=== PATIENT | male | born 1970 | race Caucasian/White ===

== ENCOUNTER 2017-10-24 02:46 | Observation (INO) | payer SELFPAY ==
[2017-10-24] MEDS ORDERED: MORPHINE SULFATE 10 MG/ML INJ IV ONE (02:54)
[2017-10-24] MEDS ORDERED: ONDANSETRON HCL INJ/PF 4 MG/2 ML SDV IV ONE (02:54)
[2017-10-24] MEDS ORDERED: NORMAL SALINE 1000 ML 1,000 ML IV ONE (02:54)
--- NOTE | 2017-10-24 02:57 | ER Document Report ---
ED GI/ - General Stated Complaint: ABDOMINAL PAIN Time Seen by Provider: 10/24/17 02:50 Notes: Patient is a 47-year-old male that comes emergency department for chief complaint of upper abdominal pain and nausea, symptoms started about 3 hours prior to arrival, he states the pain is sharp, does not radiate to his back, he states that he started to break out into a sweat because of the pain. He denies chest pain, shortness of breath, fever. He comes by EMS. He has not vomited. He has had an appendectomy, orthopedic surgeries, denies any medications or medical history otherwise. Past Medical History - General Information source: Patient - Social History Smoking Status: Never Smoker Frequency of alcohol use: None Drug Abuse: None Lives with: Alone Family History: Reviewed & Not Pertinent - Medical History Medical History: Negative Past Surgical History: Reports: Hx Appendectomy, Hx Orthopedic Surgery - Immunizations Hx Diphtheria, Pertussis, Tetanus Vaccination: Yes Review of Systems - Review of Systems Constitutional: No symptoms reported EENT: No symptoms reported Cardiovascular: No symptoms reported Respiratory: No symptoms reported Gastrointestinal: See HPI Genitourinary: No symptoms reported Male Genitourinary: No symptoms reported Musculoskeletal: No symptoms reported Skin: No symptoms reported Hematologic/Lymphatic: No symptoms reported Neurological/Psychological: No symptoms reported Physical Exam - Vital signs Vitals: Temp Pulse Resp BP Pulse Ox 99.2 F 60 20 131/85 H 98 10/24/17 02:55 10/24/17 02:55 10/24/17 02:55 10/24/17 02:55 10/24/17 02:55 - Notes Notes: GENERAL: Alert, interacts well. Appears to be in pain, sitting up on the bed, holding his abdomen HEAD: Normocephalic, atraumatic. EYES: Pupils equal, round, and reactive to light. Extraocular movements intact. ENT: Oral mucosa moist, tongue midline. [Nares patent, no nasal septal hematoma , TM's intact.] NECK: Full range of motion. Supple. Trachea midline. LUNGS: Clear to auscultation bilaterally, no wheezes, rales, or rhonchi. No respiratory distress. HEART: Regular rate and rhythm. No murmur ABDOMEN: Tender in the epigastric area and very tender in the right upper quadrant with positive Juarez sign. Lower abdomen is benign and nontender. There appears to be a soft nontender umbilical hernia which is easily reduced. Remaining abdomen unremarkable. No distention. EXTREMITIES: Moves all 4 extremities spontaneously. No edema, normal radial and dorsalis pedis pulses bilaterally. No cyanosis. BACK: no cervical, thoracic, lumbar midline tenderness. No saddle anesthesia, normal distal neurovascular exam. NEUROLOGICAL: Alert and oriented x3. Normal speech. [cranial nerves II through XII grossly intact]. SKIN: Warm, dry, normal turgor. No rashes or lesions noted. Course - Re-evaluation Re-evalutation: Patient in obvious pain on my evaluation, holding his upper abdomen, positive Juarez's sign, after examination patient promptly vomited. No CVA tenderness, lower abdomen is benign. Patient vomited several more times. Patient more comfortable after medication although still not completely comfortable. CBC shows mild leukocytosis with no shift. Chemistry unremarkable including lipase. Ultrasound showing cholelithiasis with positive sonographic Juarez sign, no pericholecystic fluid, no wall thickening, no ductal dilatation. On reevaluation patient is still very uncomfortable. Remedicated. Will discuss with surgery, discussed this with patient, he is in full agreement with potential surgery for this. 10/24/17 06:04 Spoke with surgeon, Dr. Adler, he will come and evaluate the patient. 10/24/17 06:29 Dr. Adler evaluated the patient, patient will have surgery this morning, request patient remained in the OR at this time for approximately 2 hours pending going to the OR for the procedure. - Vital Signs Vital signs: Temp Pulse Resp BP Pulse Ox 99.2 F 60 20 131/85 H 98 10/24/17 02:55 10/24/17 02:55 10/24/17 02:55 10/24/17 02:55 10/24/17 02:55 - Laboratory Result Diagrams: 10/24/17 03:05 10/24/17 03:05 Laboratory results interpreted by me: 10/24/17 10/24/17 03:05 03:05 WBC 12.1 H Sodium 147.9 H Glucose 137 H Discharge - Discharge Clinical Impression: Right upper quadrant pain Cholelithiasis Qualifiers: Cholelithiasis location: gallbladder Cholecystitis presence: without cholecystitis Biliary obstruction: without biliary obstruction Qualified Code(s) : K80.20 - Calculus of gallbladder without cholecystitis without obstruction Vomiting Qualifiers: Vomiting type: unspecified Vomiting Intractability: non-intractable Nausea presence: with nausea Qualified Code(s): R11.2 - Nausea with vomiting, unspecified Condition: Stable Disposition: ADMITTED OBSERVATION Admitting Provider: Surgicalist Unit Admitted: OR
[2017-10-24] MEDS ORDERED: KETOROLAC TROMETHAMINE INJ/PF 30 MG/1 ML SDV IV ONE (03:16)
[2017-10-24 03:29] LABS: ABSOLUTE BASOPHILS # (AUTO) 0.1 10^3/uL (0.0-0.2); ABSOLUTE EOSINOPHILS # (AUTO) 0.4 10^3/uL (0.0-0.6); ABSOLUTE LYMPHOCYTES (AUTO) 2.9 10^3/uL (0.5-4.7); ABSOLUTE MONOCYTES (AUTO) 1.1 10^3/uL (0.1-1.4); ABSOLUTE NEUT (AUTO) 7.7 10^3/uL (1.7-8.2); BASOPHILS % (AUTO) 0.6 % (0-2); HEMATOCRIT 44.6 % (37.9-51.0); HEMOGLOBIN 14.8 g/dL (13.5-17.0); LYMPHOCYTES % (AUTO) 23.9 % (13-45); MEAN CORPUSCULAR HEMOGLOBIN 29.7 pg (27.0-33.4); MEAN CORPUSCULAR HGB CONC 33.3 g/dL (32.0-36.0); MEAN CORPUSCULAR VOLUME 89 fl (80-97); MONOCYTES % (AUTO) 9.1 % (3-13); PLATELET COUNT 341 10^3/uL (150-450); RED CELL DISTRIBUTION WIDTH 12.8 % (11.5-14.0); SEGMENTED NEUTROPHILS % (AUTO) 63.4 % (42-78); TOTAL CELLS COUNTED % (AUTO) 100 %; WHITE BLOOD COUNT 12.1 10^3/uL (4.0-10.5)
[2017-10-24 03:40] LABS: ALANINE AMINOTRANSFERASE 32 U/L (21-72); ALBUMIN 4.5 g/dL (3.5-5.0); ALKALINE PHOSPHATASE 58 U/L (38-126); ANION GAP 16 (5-19); ASPARTATE AMINO TRANSFERASE 23 U/L (17-59); BILIRUBIN,DIRECT 0.2 mg/dL (0.0-0.4); BILIRUBIN,TOTAL 0.4 mg/dL (0.2-1.3); BLOOD UREA NITROGEN 18 mg/dL (7-20); CALCIUM 9.6 mg/dL (8.4-10.2); CARBON DIOXIDE 25 mmol/L (22-30); CHLORIDE 107 mmol/L (98-107); GLUCOSE 137 mg/dL (75-110); LIPASE 122.1 U/L (23-300); POTASSIUM 3.9 mmol/L (3.6-5.0); SODIUM 147.9 mmol/L (137-145); TOTAL PROTEIN 7.7 g/dL (6.3-8.2)
--- NOTE | 2017-10-24 04:43 | RADIOLOGY REPORT (SQ) ---
EXAM DESCRIPTION: US ABDOMEN LIMITED COMPLETED DATE/TME: 10/24/2017 02:54 CLINICAL HISTORY: RUQ and epigastric pain, vomiting COMPARISON: None. TECHNIQUE: Real-time sonographic images of the right upper abdomen were obtained using a curved multihertz transducer. FINDINGS: Pancreas: The visualized portions of the pancreas are unremarkable. Vascular: The visualized portions of the aorta and IVC are unremarkable. Liver: The liver has normal contour and echogenicity. Hepatopedal flow in the portal vein. Findings confirmed with color and spectral Doppler imaging. The common bile duct measures 0.3 cm. Gallbladder: Echogenic structures with posterior shadowing identified. Normal gallbladder wall thickness. Positive reported sonographic Juarez sign. No pericholecystic fluid identified. Right Kidney: The right kidney measures 12.1 cm in length. No hydronephrosis, solid renal mass, or shadowing calculi. IMPRESSION: 1. Cholelithiasis with reported positive sonographic Juarez sign. These findings could be seen with acute cholecystitis.
[2017-10-24] MEDS ORDERED: HYDROMORPHONE HCL INJ/PF 2 MG/ML AMPULE IV ONE ×2 (04:50→07:53)
[2017-10-24] MEDS ORDERED: AMPICILLIN SOD/SULBACTAM 3 GM VIAL IV ONE (04:51)
[2017-10-24 05:58] LABS: APPEARANCE,URINE CLEAR; BILIRUBIN,URINE NEGATIVE (NEGATIVE); COLOR,URINE YELLOW; GLUCOSE, URINE NEGATIVE (NEGATIVE); KETONES,URINE NEGATIVE (NEGATIVE); LEUKOCYTE ESTERASE,URINE NEGATIVE (NEGATIVE); NITRITE,URINE NEGATIVE (NEGATIVE); PROTEIN,URINE NEGATIVE (NEGATIVE); URINE SPECIFIC GRAVITY 1.019; UROBILINOGEN,URINE NEGATIVE mg/dL (<2.0)
--- NOTE | 2017-10-24 06:43 | PDOC H&P ---
History of Present Illness Admission Date/PCP: 10/24/2017 Patient complains of: Abdominal pains History of Present Illness: ALLAN KILPATRICK is a 47 year old male who woke up at 11 pm last night with upper abdominal pains associated with nausea. He had greasy chicken wings at 7: 30 pm. He went to ED were an ultrasound of gallbladder showed gallstones with positive Juarez's sign. Past Surgical History Past Surgical History: Reports: Appendectomy, Orthopedic Surgery Social History Lives with: Alone Smoking Status: Never Smoker Family History Family History: Reviewed & Not Pertinent Parental Family History Reviewed: Yes Children Family History Reviewed: No Sibling(s) Family History Reviewed.: No Review of Systems Constitutional: PRESENT: other - no fever/chills Eyes: PRESENT: other - no visual/hearing changes Cardiovascular: PRESENT: other - no chest pains/cough Gastrointestinal: PRESENT: abdominal pain, nausea Genitourinary: PRESENT: other - no dysuria Hematologic/Lymphatic: PRESENT: other - no easy bruising Physical Exam Vital Signs: Temp Pulse Resp BP Pulse Ox 99.2 F 60 20 131/85 H 98 10/24/17 02:55 10/24/17 02:55 10/24/17 02:55 10/24/17 02:55 10/24/17 02:55 Intake & Output 10/22/17 10/23/17 10/24/17 06:59 06:59 06:59 Intake Total 1000 Balance 1000 General appearance: PRESENT: mild distress Head exam: PRESENT: atraumatic Eye exam: PRESENT: conjunctiva pink Mouth exam: PRESENT: moist Neck exam: PRESENT: full ROM Respiratory exam: PRESENT: clear to auscultation eliu Cardiovascular exam: PRESENT: RRR Pulses: PRESENT: normal radial pulses Vascular exam: PRESENT: normal capillary refill GI/Abdominal exam: PRESENT: Juarez's sign, soft Rectal exam: PRESENT: deferred Extremities exam: PRESENT: full ROM Musculoskeletal exam: PRESENT: ambulatory Neurological exam: PRESENT: alert, oriented to person, oriented to place, oriented to time, oriented to situation Psychiatric exam: PRESENT: appropriate affect Skin exam: PRESENT: normal color, warm Results Laboratory Results: 10/24/17 03:05 10/24/17 03:05 10/24/17 10/24/17 10/24/17 03:05 03:05 04:50 WBC 12.1 H RBC 5.00 Hgb 14.8 Hct 44.6 MCV 89 MCH 29.7 MCHC 33.3 RDW 12.8 Plt Count 341 Seg Neutrophils % 63.4 Lymphocytes % 23.9 Monocytes % 9.1 Eosinophils % 3.0 Basophils % 0.6 Absolute Neutrophils 7.7 Absolute Lymphocytes 2.9 Absolute Monocytes 1.1 Absolute Eosinophils 0.4 Absolute Basophils 0.1 Sodium 147.9 H Potassium 3.9 Chloride 107 Carbon Dioxide 25 Anion Gap 16 BUN 18 Creatinine 1.02 Est GFR ( Amer) > 60 Est GFR (Non-Af Amer) > 60 Glucose 137 H Calcium 9.6 Total Bilirubin 0.4 AST 23 ALT 32 Alkaline Phosphatase 58 Total Protein 7.7 Albumin 4.5 Lipase 122.1 Urine Color YELLOW Urine Appearance CLEAR Urine pH 6.0 Ur Specific [place] 1.019 Urine Protein NEGATIVE Urine Glucose (UA) NEGATIVE Urine Ketones NEGATIVE Urine Blood NEGATIVE Urine Nitrite NEGATIVE Ur Leukocyte Esterase NEGATIVE Urine WBC (Auto) 1 Urine RBC (Auto) 2 Impressions: Abdomen Ultrasound 10/24/17 02:54 IMPRESSION: 1. Cholelithiasis with reported positive sonographic Juarez sign. These findings could be seen with acute cholecystitis. Assessment & Plan - Diagnosis (1) Acute cholecystitis Is this a current diagnosis for this admission?: Yes (2) Cholelithiasis Qualifiers: Cholelithiasis location: gallbladder Cholecystitis presence: with cholecystitis Biliary obstruction: without biliary obstruction Qualified Code(s): K80.20 - Calculus of gallbladder without cholecystitis without obstruction Is this a current diagnosis for this admission?: Yes - Time Time Spent: 30 to 50 Minutes - Inpatient Certification Medical Necessity: Need For IV Fluids, Need for Pain Control, Need for IV Antibiotics, Need for Surgery - Plan Summary Plan Summary: NPO IV antibiotics For Lap Ana
[2017-10-24] MEDS: NORMAL SALINE 1000 ML 1,000 ML IV PRN ×2 (07:52→16:10)
[2017-10-24] MEDS ORDERED: FENTANYL CITRATE INJ/PF 250 MCG/5 ML AMPULE ONE (10:30)
[2017-10-24] MEDS ORDERED: MIDAZOLAM 2 MG/2 ML INJ ONE (10:30)
[2017-10-24] MEDS ORDERED: ACETAMINOPHEN 1,000 MG/100 ML RTUPB IV ONE (10:31)
[2017-10-24] MEDS ORDERED: PROPOFOL INJ 200 MG/20 ML VIAL IV ONE (10:31)
[2017-10-24] MEDS: BUPIVACAINE HCL 0.25 % INJ/PF (2.5 MG/1 ML) 30 ML VIAL ONE ×2 (11:56→12:18)
[2017-10-24] MEDS ORDERED: DIPHENHYDRAMINE HCL 50 MG/ML VIAL IV PRN (12:24)
[2017-10-24] MEDS ORDERED: FENTANYL CITRATE INJ/PF 100 MCG/2 ML AMPUL IV PRN ×3 (12:24)
[2017-10-24] MEDS ORDERED: PROMETHAZINE HCL INJ 25 MG/1 ML VIAL IV PRN ×2 (12:24)
[2017-10-24] MEDS ORDERED: MORPHINE SULFATE 10 MG/ML INJ IV PRN (12:24)
[2017-10-24] MEDS ORDERED: MEPERIDINE HCL/PF INJ 25 MG/1 ML DISP.SYRIN IV PRN (12:24)
[2017-10-24] MEDS ORDERED: ONDANSETRON HCL INJ/PF 4 MG/2 ML SDV IV PRN (13:21)
--- NOTE | 2017-10-24 13:21 | Operative Report ---
Operative Report DATE OF SURGERY: 10/24/17 PREOPERATIVE DIAGNOSIS: Acute cholecystitis with cholelithiasis POSTOPERATIVE DIAGNOSIS: Same OPERATION: Laparoscopic cholecystectomy SURGEON: BRODY ISAACS ANESTHESIA: GA TISSUE REMOVED OR ALTERED: 1 gallbladder with contents COMPLICATIONS: None ESTIMATED BLOOD LOSS: Scant INTRAOPERATIVE FINDINGS: See below PROCEDURE: After obtaining informed consent, the patient was taken to the operating room. General Anesthesia was induced; the arms were extended, and the abdomen was exposed, and prepped and draped in a sterile fashion. Instrumentation was set up for laparoscopic cholecystectomy. Surgical plan and surgical timeout were conducted. A vertical incision was made above the umbilicus, and a verres needle was inserted uneventfully into the peritoneal cavity. Pneumoperitoneum was established. The verres needle was removed and a 5 mm trocar was inserted and a 5 mm flexible laparoscope was inserted. Visualization of the peritoneal cavity confirmed safe uneventful entry. Under direct visualization 3 additional 5 mm ports were established, one in the subxiphoid position and second in the subcostal position. Visualization of the hepatobiliary anatomy revealed no anatomic variations. Of note there was marked edema of the gallbladder consistent with acute cholecystitis. A grasper was placed on the fundus of the gallbladder and the gallbladder is elevated over the right surface of the liver ; a second grasper was used to grasp the infundibulum of the gallbladder. The neck of the gallbladder and junction with the cystic duct was dissected out. The neck of the gallbladder was very patulous and the taper to the cystic duct very gradual. The Cystic artery was in its usual location medial and cephalad to the cystic duct. The cystic artery was surrounded with a right angle clamp, clipped twice proximally and divided with laparoscopic scissors. Because of the marked edema I elected to take the gallbladder down from the fundus and this was performed with a cautery dissection until the point where the gallbladder was suspended exclusively by the cystic duct. Multiple photos were taken. Again this was a large cystic duct. I put a 0 Endoloop around the gallbladder side of the cystic duct then opened the cystic duct transversely and then opened the duct medially in a T like fashion. A significant amount of sludge and small stones were evacuated from the cystic duct stump. We irrigated massaged and we irrigated the area. Unfortunately I never got back bile. The patient's preoperative liver function studies were within normal limits, and the common bile duct was felt to be of normal caliber. Therefore we did not pursue any further intervention such as intraoperative cholangiography. The cystic duct was then divided completely, gallbladder was brought to the patient to the supraumbilical port site incision We returned the peritoneal cavity removed some of the small previously released stones from the cystic duct, then secured the cystic duct stump with a 3-0 PDS Endoloop suture. Concluding photos were taken. The specimen was examined, then passed off to pathology for permanent analysis. We returned to the peritoneal cavity check for bleeding, and evidence of bile leak, and there was none. We Confirmed satisfactory placement of clips on cystic duct and cystic artery were secured . At this point we felt the operation was complete. The subcutaneous tissue was then anesthetized with quarter percent Marcaine Sponge and needle counts are correct. All ports removed under direct visualization pneumoperitoneum evacuated, and 5 mm port wounds closed with 0 Vicryl at the supraumbilical position, 3-0 Vicryl suture, benzoin and Steri-Strips. The patient was extubated, and taken to the recovery room in stable condition.
[2017-10-24] MEDS ORDERED: FENTANYL CITRATE INJ/PF 100 MCG/2 ML AMPUL ONE (13:55)
[2017-10-24] MEDS: OXYCODONE-ACETAMINOPHEN 5-325 MG TABLET PO PRN ×2 (16:17→22:06)
[2017-10-24] MEDS: KETOROLAC TROMETHAMINE 10 MG TABLET PO PRN (17:31)
[2017-10-24] MEDS: CEFAZOLIN 1 GM/D5W RTU 1 GM/50 ML RTUPB IV SCH (17:36)
[2017-10-24] MEDS ORDERED: DEXAMETHASONE SOD PHOSPHATE INJ 4 MG/1 ML VIAL ONE (18:36)
[2017-10-24] MEDS ORDERED: ROCURONIUM BROMIDE INJ 50 MG/5 ML VIAL IV ONE (18:36)
[2017-10-24] MEDS ORDERED: ONDANSETRON HCL INJ/PF 4 MG/2 ML SDV ONE (18:36)
[2017-10-25] MEDS: CEFAZOLIN 1 GM/D5W RTU 1 GM/50 ML RTUPB IV SCH (01:51)
[2017-10-25] MEDS: KETOROLAC TROMETHAMINE 10 MG TABLET PO PRN (05:58)
[2017-10-25 10:40] VITALS: BP 132/79
--- NOTE | 2017-10-26 06:50 | DISCHARGE SUMMARY E ---
Discharge Summary NAME: ALLAN KILPATRICK : 1970 AGE: 47Y ADMITTED: 10/24/2017 DISCHARGED: 10/25/2017 FINAL DIAGNOSIS: ACUTE CALCULUS CHOLECYSTITIS. PROCEDURE DONE: Laparoscopic cholecystectomy 10/24/2017. SURGEON: Dr. Eduardo Sumner [facility]SE: This is a 47-year-old male who came in with abdominal pains for 24 hours after a fatty meal. He was noted to have stones in the gallbladder and markedly tender in the right upper quadrant. He was then taken to the OR for laparoscopic cholecystectomy for acute cholecystitis by Dr. Sumner on 10/24/2017. Postoperatively he did well and he tolerated a soft on the day of discharge. He was then discharged improved on 10/25/2017 with above final diagnosis. Patient to be followed up in the surgical clinic in 2 weeks. DICTATING PHYSICIAN: JOSE ARMANDO JOSHUA M.D. [id number] PHY#: [id number] ID: [id number] JOB#: [id number] ACCT: [id number] cc:Juanjose GARZA MD, M.D. IVAN FRIANT, PA >
== END 2017-10-25 11:30 | disposition home or self-care (01) ==
LOC: ER 02:46 → EH 06:39 → 2S 09:16
PROVIDERS: ATTEND Surgery
PROC: 0FT44ZZ Resection of Gallbladder, Percutaneous Endoscopic Approach (ICD-10-PCS; principal; 2017-10-24 11:00)
DX: K80.12 Calculus of gallbladder with acute and chronic cholecystitis without obstruction (principal); Z90.49 Acquired absence of other specified parts of digestive tract
CPT/HCPCS: 96376; 99285; 96361; 96374; 96375; 36415; 83690; 85025; 80053; 81001; 88304 ×2; 76705; 47562; G0378 ×2; J2250; J0690 ×2; J3490 ×3; J1100; J3010 ×2; J0295; J1885; J2270; J1170; J2405; J7030; J2704; J0131; 790

== ENCOUNTER 2019-01-09 22:17 | Emergency (ER) | payer SELFPAY ==
--- NOTE | 2019-01-09 22:47 | ER Document Report ---
ED Medical Screen (RME) - General Chief Complaint: Abdominal Pain Stated Complaint: ADBOMINAL PAIN Time Seen by Provider: 01/09/19 22:41 Mode of Arrival: Ambulatory Information source: Patient Notes: This 49-year-old male presents emergency department with complaints of severe epigastric right upper quad abdominal pain. Reports he had his gallbladder taken out last year. Denies fever vomiting diarrhea. Reports he is tried multiple [id number] agents without relief of symptoms. I have greeted and performed a rapid initial assessment of this patient. A comprehensive ED assessment and evaluation of the patient, analysis of test results and completion of the medical decision making process will be conducted by additional ED providers. Dictation of this chart was performed using voice recognition software; therefore, there may be some unintended grammatical errors. TRAVEL OUTSIDE OF THE [place] IN LAST 30 DAYS: No - Related Data Allergies/Adverse Reactions: No Known Allergies Allergy (Verified 10/24/17 08:07) Past Medical History Pulmonary Medical History: Reports: Hx Asthma - childhood Renal/ Medical History: Denies: Hx Peritoneal Dialysis GI Medical History: Reports: Hx Gastroesophageal Reflux Disease Past Surgical History: Reports: Hx Appendectomy, Hx Orthopedic Surgery - Immunizations Hx Diphtheria, Pertussis, Tetanus Vaccination: Yes Physical Exam - Vital signs Vitals: Temp Pulse Resp BP Pulse Ox 98.1 F 66 18 133/91 H 97 01/09/19 22:26 01/09/19 22:26 01/09/19 22:26 01/09/19 22:26 01/09/19 22:26 Course - Vital Signs Vital signs: Temp Pulse Resp BP Pulse Ox 98.1 F 66 18 133/91 H 97 01/09/19 22:26 01/09/19 22:26 01/09/19 22:26 01/09/19 22:26 01/09/19 22:26
[2019-01-09 23:11] LABS: APPEARANCE,URINE CLEAR; BILIRUBIN,URINE NEGATIVE (NEGATIVE); COLOR,URINE YELLOW; GLUCOSE, URINE NEGATIVE (NEGATIVE); KETONES,URINE NEGATIVE (NEGATIVE); LEUKOCYTE ESTERASE,URINE NEGATIVE (NEGATIVE); NITRITE,URINE NEGATIVE (NEGATIVE); PROTEIN,URINE NEGATIVE (NEGATIVE); URINE SPECIFIC GRAVITY 1.021; UROBILINOGEN,URINE NEGATIVE mg/dL (<2.0)
[2019-01-09 23:12] LABS: ABSOLUTE BASOPHILS # (AUTO) 0.1 10^3/uL (0.0-0.2); ABSOLUTE EOSINOPHILS # (AUTO) 0.5 10^3/uL (0.0-0.6); ABSOLUTE LYMPHOCYTES (AUTO) 2.7 10^3/uL (0.5-4.7); ABSOLUTE NEUT (AUTO) 5.8 10^3/uL (1.7-8.2); BASOPHILS % (AUTO) 0.8 % (0-2); EOSINOPHILS % (AUTO) 4.6 % (0-6); HEMATOCRIT 43.2 % (37.9-51.0); HEMOGLOBIN 14.9 g/dL (13.5-17.0); LYMPHOCYTES % (AUTO) 26.8 % (13-45); MEAN CORPUSCULAR HEMOGLOBIN 30.6 pg (27.0-33.4); MEAN CORPUSCULAR HGB CONC 34.5 g/dL (32.0-36.0); MEAN CORPUSCULAR VOLUME 89 fl (80-97); MONOCYTES % (AUTO) 9.7 % (3-13); PLATELET COUNT 292 10^3/uL (150-450); RED BLOOD COUNT 4.88 10^6/uL (4.35-5.55); RED CELL DISTRIBUTION WIDTH 12.9 % (11.5-14.0); SEGMENTED NEUTROPHILS % (AUTO) 58.1 % (42-78); TOTAL CELLS COUNTED % (AUTO) 100 %; WHITE BLOOD COUNT 10.1 10^3/uL (4.0-10.5)
[2019-01-09 23:28] LABS: ALBUMIN 4.3 g/dL (3.5-5.0); ALKALINE PHOSPHATASE 54 U/L (38-126); AMYLASE 72 U/L (30-110); ANION GAP 10 (5-19); ASPARTATE AMINO TRANSFERASE 22 U/L (17-59); BILIRUBIN,DIRECT 0.1 mg/dL (0.0-0.4); BILIRUBIN,TOTAL 0.5 mg/dL (0.2-1.3); BLOOD UREA NITROGEN 19 mg/dL (7-20); CALCIUM 9.3 mg/dL (8.4-10.2); CARBON DIOXIDE 25 mmol/L (22-30); CHLORIDE 108 mmol/L (98-107); GLUCOSE 93 mg/dL (75-110); POTASSIUM 4.2 mmol/L (3.6-5.0); TOTAL PROTEIN 7.4 g/dL (6.3-8.2)
[2019-01-10] MEDS ORDERED: MORPHINE SULFATE 10 MG/ML INJ IV ONE (01:45)
[2019-01-10] MEDS ORDERED: ONDANSETRON HCL INJ/PF 4 MG/2 ML SDV IV ONE (01:45)
[2019-01-10] MEDS ORDERED: NORMAL SALINE 1000 ML 1,000 ML IV ONE (01:45)
--- NOTE | 2019-01-10 01:46 | ER Document Report ---
ED GI/ - General Chief Complaint: Abdominal Pain Stated Complaint: ADBOMINAL PAIN Time Seen by Provider: 01/09/19 22:41 Mode of Arrival: Ambulatory Notes: Patient is a 49-year-old male that comes to the emergency department for chief complaint of sharp pain in his epigastric and right upper quadrant areas (he points). This started last night, started subsiding, return today, and then worsened this evening. He reports nausea but denies vomiting. He states he tried to eat but this did make symptoms worse both yesterday and today. He has had a cholecystectomy. He denies alcohol, smoking but he does admit to frequent caffeine and recent [id number] anti-inflammatories. He denies chest pain, shortness of breath, fever/chills, flank pain, lower abdominal pain. He takes medication for depression, on no other medications. TRAVEL OUTSIDE OF THE [place] IN LAST 30 DAYS: No - Related Data Allergies/Adverse Reactions: No Known Allergies Allergy (Verified 10/24/17 08:07) Past Medical History - General Information source: Patient - Social History Smoking Status: Never Smoker Frequency of alcohol use: None Drug Abuse: None Lives with: Family Family History: Reviewed & Not Pertinent Patient has suicidal ideation: No Patient has homicidal ideation: No Pulmonary Medical History: Reports: Hx Asthma - childhood Renal/ Medical History: Denies: Hx Peritoneal Dialysis GI Medical History: Reports: Hx Gastroesophageal Reflux Disease Past Surgical History: Reports: Hx Appendectomy, Hx Cholecystectomy, Hx Orthopedic Surgery - Immunizations Hx Diphtheria, Pertussis, Tetanus Vaccination: Yes Review of Systems - Review of Systems Constitutional: No symptoms reported EENT: No symptoms reported Cardiovascular: No symptoms reported Respiratory: No symptoms reported Gastrointestinal: See HPI Genitourinary: No symptoms reported Male Genitourinary: No symptoms reported Musculoskeletal: No symptoms reported Skin: No symptoms reported Hematologic/Lymphatic: No symptoms reported Neurological/Psychological: No symptoms reported Physical Exam - Vital signs Vitals: Temp Pulse Resp BP Pulse Ox 98.1 F 66 18 133/91 H 97 01/09/19 22:26 01/09/19 22:26 01/09/19 22:26 01/09/19 22:26 01/09/19 22:26 - Notes Notes: GENERAL: Alert, interacts well. No acute distress. HEAD: Normocephalic, atraumatic. EYES: Pupils equal, round, and reactive to light. Extraocular movements intact. ENT: Oral mucosa moist, tongue midline. Oropharynx unremarkable. Airway patent. Nares patent, no nasal septal hematoma, TM's intact. NECK: Full range of motion. Supple. Trachea midline. LUNGS: Clear to auscultation bilaterally, no wheezes, rales, or rhonchi. No respiratory distress. HEART: Regular rate and rhythm. No murmur ABDOMEN: There is some epigastric tenderness and very mild tenderness across the upper abdomen generally, nonspecific, no guarding. Lower abdomen is completely benign. GENITOURINARY: Deferred EXTREMITIES: Moves all 4 extremities spontaneously. No edema, normal radial and dorsalis pedis pulses bilaterally. No cyanosis. BACK: no cervical, thoracic, lumbar midline tenderness. No saddle anesthesia, normal distal neurovascular exam. Moves all extremities in full range of motion. NEUROLOGICAL: Alert and oriented x3. Normal speech. Cranial nerves II through XII grossly intact. PSYCH: Normal affect, normal mood. SKIN: Warm, dry, normal turgor. No rashes or lesions noted. Course - Re-evaluation Re-evalutation: Patient with epigastric tenderness on evaluation but no guarding. He is not in distress. His reported symptoms are very suspicious for gastritis and upper gastrointestinal inflammation. CBC, chemistry, lipase unremarkable. I did not order the CAT scan because I do not feel the patient needs it based on this eval uation but this was already completed from triage. I did review this and this showed no acute findings. Patient was give treatment for symptoms which resolved, he is able to tolerate p.o. without difficulty. I discussed with patient suspicions, work-up, recommendations, follow-up, and return precautions. Patient states appreciation and agreement, stable time of discharge. - Vital Signs Vital signs: Temp Pulse Resp BP Pulse Ox 97.3 F 57 L 16 125/78 96 01/10/19 04:00 01/10/19 04:00 01/10/19 04:00 01/10/19 04:00 01/10/19 04:00 - Laboratory Result Diagrams: 01/09/19 22:50 01/09/19 22:50 Laboratory results interpreted by me: 01/09/19 22:50 Chloride 108 H Discharge - Discharge Clinical Impression: Epigastric pain, Nausea Condition: Stable Disposition: HOME, SELF-CARE Additional Instructions: Your symptoms and examination indicate gastritis/esophagitis (inflammation of your upper gastrointestinal tract). Take Phenergan for nausea, take Carafate and Pepcid as prescribed to help treat this, you can take additional Rolaids, Tums, Maalox, etc. if needed. You can take Tylenol for pain. Avoid NSAIDs, alcohol, smoking, caffeine, spicy food. Start with clear fluids, progress to bland diet. Follow-up with primary care for additional evaluation and treatment including possible H. pylori testing. Return if you worsen including uncontrolled vomiting, vomiting blood, black stools, severe pain, fever of 100.4 or greater, or any other concerning or worsening symptoms. Prescriptions: Sucralfate [Carafate 1 gm Tablet] 1 gm PO QID #20 tablet Famotidine [Pepcid 20 mg Tablet] 20 mg PO BID #20 tablet Promethazine HCl [Phenergan 25 mg Tablet] 25 mg PO Q6H PRN #20 tablet PRN Reason:
--- NOTE | 2019-01-10 02:12 | RADIOLOGY REPORT (SQ) ---
EXAM DESCRIPTION: CT ABDOMEN PELVIS WITH IV CONTRAST COMPLETED DATE/TME: 01/09/2019 22:45 CLINICAL HISTORY: severe RUQ, EPIGASTRIC abdominal pain COMPARISON: None Available. TECHNIQUE: CT of the abdomen and pelvis performed following IV administration of 100.1 mL of Omnipaque 350. FINDINGS: Lung Bases: The visualized lung bases are clear. Bones: Mild degenerative change of the spine. Abdomen: Liver: The liver has normal size and density. No intrahepatic mass or biliary dilatation. Gallbladder: Prior cholecystectomy. Spleen, Pancreas, and Adrenal Glands: The spleen, pancreas, and adrenal glands are unremarkable. Kidneys: The kidneys have normal size without evidence of solid mass or hydronephrosis. Vasculature: The aorta and IVC have normal caliber and position. The portal vein is patent. The proximal visceral and renal arteries are patent. Stomach: The stomach and duodenum have normal course. Other: No free intraperitoneal air. No free fluid or lymphadenopathy. Pelvis: Bladder: Urinary bladder is unremarkable. Bowel: No dilated loops of large or small bowel. Appendix: Prior appendectomy. Pelvis: Prostate is not enlarged. Small fat-containing right inguinal hernia. IMPRESSION: 1. No acute inflammatory or obstructive process identified. This exam was performed according to our departmental dose-optimization program, which includes automated exposure control, adjustment of the mA and/or kV according to patient size and/or use of iterative reconstruction technique.
[2019-01-10] MEDS ORDERED: SUCRALFATE 1 GM TABLET PO ONE (03:28)
[2019-01-10] MEDS ORDERED: PROMETHAZINE HCL 25 MG TABLET PO ONE (03:29)
[2019-01-10] MEDS ORDERED: FAMOTIDINE 20 MG TABLET PO ONE (03:29)
[2019-01-10 04:06] VITALS: BP 125/78
== END 2019-01-10 04:07 | disposition home or self-care (01) ==
LOC: ER 22:17
DX: R10.13 Epigastric pain (principal); R11.0 Nausea; R10.11 Right upper quadrant pain; Z90.49 Acquired absence of other specified parts of digestive tract
CPT/HCPCS: 99284; 96361; 96374; 96375; 36415; 82150; 83690; 85025; 80053; 81001; 74177; J2270; J2405; J7030

== ENCOUNTER 2019-01-14 20:37 | Emergency (ER) | payer SELFPAY ==
[2019-01-14] MEDS ORDERED: METOCLOPRAMIDE HCL ORAL SOLN 10 MG/10 ML UDCUP PO ONE (21:06)
[2019-01-14] MEDS ORDERED: MAG HYDROX/AL HYDROX/SIMETH SUSP 30 ML UDCUP PO ONE (21:06)
[2019-01-14] MEDS ORDERED: LIDOCAINE 2% VISCOUS SOLN 20 ML UDCUP PO ONE (21:06)
--- NOTE | 2019-01-14 21:06 | ER Document Report ---
ED Medical Screen (RME) - General Chief Complaint: Abdominal Pain Stated Complaint: ABDOMINAL PAIN Time Seen by Provider: 01/14/19 21:02 Mode of Arrival: Ambulatory Information source: Patient Notes: 49-year-old male presented to ED for complaint of epigastric pain that started yesterday. He states it was very severe about 9:00 finally got to the sleep after he got himself comfortable he was fine this morning manageable pain and he ate about 7:00 and the pains back again started about 9:00. He states he had a similar episode about past Tuesday and was diagnosed with gastritis given some medications and it did improve but it is back. He states his gallbladder was removed last year in the fall. He denies smoking drinking or use of any drugs. I have greeted and performed a rapid initial assessment of this patient. A comprehensive ED assessment and evaluation of the patient, analysis of test results and completion of medical decision making process will be conducted by an additional ED providers. TRAVEL OUTSIDE OF THE [place] IN LAST 30 DAYS: No - Related Data Allergies/Adverse Reactions: No Known Allergies Allergy (Verified 10/24/17 08:07) Past Medical History Pulmonary Medical History: Reports: Hx Asthma - childhood Renal/ Medical History: Denies: Hx Peritoneal Dialysis GI Medical History: Reports: Hx Gastroesophageal Reflux Disease Past Surgical History: Reports: Hx Appendectomy, Hx Cholecystectomy, Hx Orthopedic Surgery - Immunizations Hx Diphtheria, Pertussis, Tetanus Vaccination: Yes Physical Exam - Vital signs Vitals: Temp Pulse Resp BP Pulse Ox 97.7 F 78 20 130/83 H 100 01/14/19 20:41 01/14/19 20:41 01/14/19 20:41 01/14/19 20:41 01/14/19 20:41 Course - Vital Signs Vital signs: Temp Pulse Resp BP Pulse Ox 97.7 F 78 20 130/83 H 100 01/14/19 20:41 01/14/19 20:41 01/14/19 20:41 01/14/19 20:41 01/14/19 20:41
[2019-01-14 21:42] LABS: APPEARANCE,URINE CLEAR; BILIRUBIN,URINE NEGATIVE (NEGATIVE); COLOR,URINE YELLOW; GLUCOSE, URINE NEGATIVE (NEGATIVE); KETONES,URINE NEGATIVE (NEGATIVE); PROTEIN,URINE NEGATIVE (NEGATIVE); URINE SPECIFIC GRAVITY 1.018; UROBILINOGEN,URINE NEGATIVE mg/dL (<2.0)
[2019-01-14 21:49] LABS: ABSOLUTE EOSINOPHILS # (AUTO) 0.4 10^3/uL (0.0-0.6); ABSOLUTE LYMPHOCYTES (AUTO) 2.4 10^3/uL (0.5-4.7); ABSOLUTE MONOCYTES (AUTO) 0.8 10^3/uL (0.1-1.4); ABSOLUTE NEUT (AUTO) 6.7 10^3/uL (1.7-8.2); BASOPHILS % (AUTO) 0.4 % (0-2); EOSINOPHILS % (AUTO) 3.4 % (0-6); HEMATOCRIT 47.5 % (37.9-51.0); HEMOGLOBIN 16.3 g/dL (13.5-17.0); LYMPHOCYTES % (AUTO) 23.1 % (13-45); MEAN CORPUSCULAR HEMOGLOBIN 30.1 pg (27.0-33.4); MEAN CORPUSCULAR HGB CONC 34.4 g/dL (32.0-36.0); MEAN CORPUSCULAR VOLUME 88 fl (80-97); MONOCYTES % (AUTO) 8.1 % (3-13); PLATELET COUNT 331 10^3/uL (150-450); RED BLOOD COUNT 5.42 10^6/uL (4.35-5.55); TOTAL CELLS COUNTED % (AUTO) 100 %; WHITE BLOOD COUNT 10.3 10^3/uL (4.0-10.5)
[2019-01-14 21:59] LABS: ALBUMIN 4.8 g/dL (3.5-5.0); ALKALINE PHOSPHATASE 82 U/L (38-126); ANION GAP 13 (5-19); ASPARTATE AMINO TRANSFERASE 185 U/L (17-59); BILIRUBIN,DIRECT 0.4 mg/dL (0.0-0.4); BILIRUBIN,TOTAL 0.8 mg/dL (0.2-1.3); BLOOD UREA NITROGEN 15 mg/dL (7-20); CALCIUM 9.9 mg/dL (8.4-10.2); CARBON DIOXIDE 28 mmol/L (22-30); CHLORIDE 102 mmol/L (98-107); GLUCOSE 104 mg/dL (75-110); POTASSIUM 4.2 mmol/L (3.6-5.0); TOTAL PROTEIN 8.2 g/dL (6.3-8.2)
--- NOTE | 2019-01-14 23:18 | ER Document Report ---
ED General - General Chief Complaint: Abdominal Pain Stated Complaint: ABDOMINAL PAIN Time Seen by Provider: 01/14/19 21:02 Mode of Arrival: Ambulatory TRAVEL OUTSIDE OF THE [place] IN LAST 30 DAYS: No - HPI Notes: Patient is a 49-year-old male who presents to the emergency department for evaluation of epigastric abdominal pain. It started last night at 9 PM. It was after eating chicken soup and bread. He states it was bad all night, seemed to get better throughout the day. He ate salmon and sweet potatoes, his pain worsened again. It seems to be within 30 to 90 minutes after eating. He denies any melena or hematochezia. No urinary symptoms. No nausea or vomiting. He states he feels some burning up into his chest on occasion. He was recently seen here, diagnosed with gastritis. He was started on sucralfate and Pepcid. He is status post cholecystectomy over a year ago. - Related Data Allergies/Adverse Reactions: No Known Allergies Allergy (Verified 10/24/17 08:07) Home Medications: Sucralfate, Pepcid Past Medical History - General Information source: Patient - Social History Smoking Status: Current Every Day Smoker Chew tobacco use (# tins/day): No Frequency of alcohol use: None Drug Abuse: None Family History: Reviewed & Not Pertinent Patient has suicidal ideation: No Patient has homicidal ideation: No Pulmonary Medical History: Reports: Hx Asthma - childhood Renal/ Medical History: Denies: Hx Peritoneal Dialysis GI Medical History: Reports: Hx Gastroesophageal Reflux Disease Past Surgical History: Reports: Hx Appendectomy, Hx Cholecystectomy, Hx Orthopedic Surgery - Immunizations Hx Diphtheria, Pertussis, Tetanus Vaccination: Yes Review of Systems - Review of Systems Constitutional: No symptoms reported EENT: No symptoms reported Cardiovascular: No symptoms reported Respiratory: No symptoms reported Gastrointestinal: See HPI Genitourinary: No symptoms reported Musculoskeletal: No symptoms reported Skin: No symptoms reported Neurological/Psychological: No symptoms reported Physical Exam - Vital signs Vitals: Temp Pulse Resp BP Pulse Ox 97.7 F 78 20 130/83 H 100 01/14/19 20:41 01/14/19 20:41 01/14/19 20:41 01/14/19 20:41 01/14/19 20:41 - Notes Notes: Vital signs reviewed, please refer to chart. Head is normocephalic, atraumatic. Pupils equal round, reactive to light. Neck is supple without meningismus. Heart is regular rate and rhythm. Lungs are clear to auscultation bilaterally. Abdomen is soft, mildly tender in the epigastrium without rebound or guarding, normoactive bowel sounds throughout. Extremities without cyanosis, clubbing. Posterior calves are nontender. Peripheral pulses are equal. Skin is warm and dry. Patient is awake, alert, neurological exam is nonfocal. Course - Re-evaluation Re-evalutation: 01/14/19 23:15 Patient presents emergency department for evaluation of epigastric pain. He was given a GI cocktail and had near complete relief of his pain. My suspicion is that this is all gastritis, I am suspicious of a possible gastric ulcer. I will add a PPI to his regimen. I strongly encouraged him to follow-up with gastroenterology. He is advised to avoid spicy, greasy, acidic foods. He is advised to try to not eat for 4 to 6 hours before going to bed. Otherwise, he is to return to the ED with worsening or new concerning symptoms of any sort. - Vital Signs Vital signs: Temp Pulse Resp BP Pulse Ox 97.7 F 78 20 130/83 H 100 01/14/19 20:41 01/14/19 20:41 01/14/19 20:41 01/14/19 20:41 01/14/19 20:41 - Laboratory Result Diagrams: 01/14/19 21:16 01/14/19 21:16 Laboratory results interpreted by me: 01/14/19 01/14/19 21:16 21:18 AST 185 H Urine Ascorbic Acid 40 H Discharge - Discharge Clinical Impression: Epigastric pain Gastritis Qualifiers: Gastritis type: unspecified gastritis Gastritis bleeding: without bleeding Condition: Stable Disposition: HOME, SELF-CARE Instructions: Abdominal Pain ([facility]), Gastritis ([facility]) Additional Instructions: Avoid spicy, greasy, acidic foods. Try to avoid eating for 4 to 6 hours before lying down to bed at night. Take medication as prescribed. Follow-up with gastroenterology, you should consider possible EGD for further evaluation. If you develop increased pain, vomiting, black or bloody stools, or any other new or concerning symptoms, please return immediately to the emergency department for evaluation.
[2019-01-14 23:29] VITALS: BP 119/70
== END 2019-01-14 23:29 | disposition home or self-care (01) ==
LOC: ER 20:37
DX: K29.70 Gastritis, unspecified, without bleeding (principal); R10.13 Epigastric pain; F17.200 Nicotine dependence, unspecified, uncomplicated; Z90.49 Acquired absence of other specified parts of digestive tract
CPT/HCPCS: 36415; 83690; 85025; 80053; 81001; J3490; 99284

== ENCOUNTER 2019-05-06 17:54 | Inpatient (IN) | payer SELFPAY ==
[2019-05-06] MEDS ORDERED: NORMAL SALINE 1000 ML 1,000 ML IV ONE (18:45)
[2019-05-06] MEDS ORDERED: ONDANSETRON HCL INJ/PF 4 MG/2 ML SDV IV ONE ×2 (18:45→20:49)
--- NOTE | 2019-05-06 18:49 | ER Document Report ---
ED Medical Screen (RME) - General Chief Complaint: Nausea/Vomiting/Diarrhea Stated Complaint: ABDOMINAL PAIN/CRAMPING/BLOATING Time Seen by Provider: 05/06/19 18:40 Mode of Arrival: Wheelchair Information source: Patient Notes: Patient presents complaining of nausea and vomiting diarrhea that started yesterday. Patient states today his abdomen started to become painful and distended. Patient reports subjective fever yesterday with sweating. Patient thought his symptoms were due to food poisoning. I have greeted and performed a rapid initial assessment of this patient. A comprehensive ED assessment and evaluation of the patient, analysis of test results and completion of the medical decision making process will be conducted by additional ED providers. TRAVEL OUTSIDE OF THE [place] IN LAST 30 DAYS: No - Related Data Allergies/Adverse Reactions: No Known Allergies Allergy (Verified 05/06/19 18:29) Past Medical History - Social History Chew tobacco use (# tins/day): No Frequency of alcohol use: None Drug Abuse: None Pulmonary Medical History: Reports: Hx Asthma - childhood Renal/ Medical History: Denies: Hx Peritoneal Dialysis GI Medical History: Reports: Hx Gastroesophageal Reflux Disease Past Surgical History: Reports: Hx Appendectomy, Hx Cholecystectomy, Hx Orthopedic Surgery - Immunizations Hx Diphtheria, Pertussis, Tetanus Vaccination: Yes Physical Exam - Vital signs Vitals: Temp Pulse Resp BP Pulse Ox 98.1 F 90 16 144/81 H 98 05/06/19 18:15 05/06/19 18:15 05/06/19 18:15 05/06/19 18:15 05/06/19 18:15 - Abdominal Distension: Distended Tenderness: Tender - Generalized abdomen Course - Vital Signs Vital signs: Temp Pulse Resp BP Pulse Ox 98.1 F 90 16 144/81 H 98 05/06/19 18:15 05/06/19 18:15 05/06/19 18:15 05/06/19 18:15 05/06/19 18:15
--- NOTE | 2019-05-06 19:52 | RADIOLOGY REPORT (SQ) ---
EXAM DESCRIPTION: ACUTE ABDOMEN SERIES COMPLETED DATE/TIME: 05/06/2019 7:06 pm REASON FOR STUDY: abd pain, distention COMPARISON: None. NUMBER OF VIEWS: Three views. TECHNIQUE: Frontal chest, supine abdomen and upright/decubitus abdomen radiographic images acquired. LIMITATIONS: None. FINDINGS: CHEST: Lungs clear of infiltrates. FREE AIR: None. No abnormal gas collections. BOWEL GAS PATTERN: Mildly distended loops of both large and small bowel containing air-fluid levels. Gas visualize distally within the rectum. CALCIFICATIONS: No suspicious calcifications. HARDWARE: None in the abdomen. SOFT TISSUES: No gross mass or suggestion of organomegaly. BONES: No acute fracture. No worrisome bone lesions. OTHER: No other significant finding. IMPRESSION: Mildly distended loops of both large and small bowel containing air-fluid levels with ga s visualized distally within the rectum. Differential considerations include enterocolitis or partia l bowel obstruction. TECHNICAL DOCUMENTATION: JOB ID: [id number] 2010 [employer]- All Rights Reserved Reading location - IP/workstation name: [email or web address]
[2019-05-06 20:02] LABS: ABSOLUTE EOSINOPHILS # (AUTO) 0.1 10^3/uL (0.0-0.6); ABSOLUTE LYMPHOCYTES (AUTO) 1.6 10^3/uL (0.5-4.7); ABSOLUTE MONOCYTES (AUTO) 1.1 10^3/uL (0.1-1.4); ABSOLUTE NEUT (AUTO) 7.8 10^3/uL (1.7-8.2); BASOPHILS % (AUTO) 0.3 % (0-2); EOSINOPHILS % (AUTO) 1.1 % (0-6); HEMATOCRIT 46.2 % (37.9-51.0); HEMOGLOBIN 16.1 g/dL (13.5-17.0); LYMPHOCYTES % (AUTO) 14.9 % (13-45); MEAN CORPUSCULAR HGB CONC 34.8 g/dL (32.0-36.0); MEAN CORPUSCULAR VOLUME 89 fl (80-97); MONOCYTES % (AUTO) 10.2 % (3-13); PLATELET COUNT 276 10^3/uL (150-450); RED CELL DISTRIBUTION WIDTH 13.3 % (11.5-14.0); SEGMENTED NEUTROPHILS % (AUTO) 73.5 % (42-78); TOTAL CELLS COUNTED % (AUTO) 100 %; WHITE BLOOD COUNT 10.6 10^3/uL (4.0-10.5)
[2019-05-06 20:13] LABS: APPEARANCE,URINE SLIGHTLY-CLOUDY; BILIRUBIN,URINE NEGATIVE (NEGATIVE); COLOR,URINE YELLOW; GLUCOSE, URINE NEGATIVE (NEGATIVE); KETONES,URINE NEGATIVE (NEGATIVE); LEUKOCYTE ESTERASE,URINE NEGATIVE (NEGATIVE); NITRITE,URINE NEGATIVE (NEGATIVE); PROTEIN,URINE 30 mg/dL (NEGATIVE); URINE SPECIFIC GRAVITY 1.031; UROBILINOGEN,URINE NEGATIVE mg/dL (<2.0)
[2019-05-06 20:20] LABS: ALBUMIN 5.1 g/dL (3.5-5.0); ALKALINE PHOSPHATASE 48 U/L (38-126); ANION GAP 11 (5-19); ASPARTATE AMINO TRANSFERASE 36 U/L (17-59); BILIRUBIN,DIRECT 0.2 mg/dL (0.0-0.4); BILIRUBIN,TOTAL 1.1 mg/dL (0.2-1.3); BLOOD UREA NITROGEN 19 mg/dL (7-20); CALCIUM 9.1 mg/dL (8.4-10.2); CARBON DIOXIDE 28 mmol/L (22-30); CHLORIDE 100 mmol/L (98-107); GLUCOSE 120 mg/dL (75-110); POTASSIUM 3.8 mmol/L (3.6-5.0); TOTAL PROTEIN 8.6 g/dL (6.3-8.2)
[2019-05-06] MEDS ORDERED: HYDROMORPHONE HCL INJ/PF 2 MG/ML AMPULE IV ONE (20:46)
--- NOTE | 2019-05-06 20:47 | ER Document Report ---
ED GI/ - General Chief Complaint: Nausea/Vomiting/Diarrhea Stated Complaint: ABDOMINAL PAIN/CRAMPING/BLOATING Time Seen by Provider: 05/06/19 18:40 Mode of Arrival: Wheelchair Notes: Patient is a 49-year-old male that comes emergency department for chief complaint of severe abdominal pain. He states that he feels distended and he is having waves of sharp pain. He states he was having nausea, vomiting, and diarrhea yesterday but he was doing okay until today when he started having the pain and now the pain has become severe. He states he thought he ate "some bad food and got food poisoning". He denies bloody stools or hematemesis. He denies fever. Pain is over the whole abdomen. He has had a cholecystectomy and appendectomy. He has a history of GERD. TRAVEL OUTSIDE OF THE [place] IN LAST 30 DAYS: No - Related Data Allergies/Adverse Reactions: No Known Allergies Allergy (Verified 05/06/19 18:29) Past Medical History - General Information source: Patient - Social History Smoking Status: Former Smoker Chew tobacco use (# tins/day): No Frequency of alcohol use: None Drug Abuse: None Lives with: Family Family History: Reviewed & Not Pertinent Patient has suicidal ideation: No Patient has homicidal ideation: No Pulmonary Medical History: Reports: Hx Asthma - childhood Renal/ Medical History: Denies: Hx Peritoneal Dialysis GI Medical History: Reports: Hx Gastroesophageal Reflux Disease Past Surgical History: Reports: Hx Appendectomy, Hx Cholecystectomy, Hx Orthopedic Surgery - Immunizations Hx Diphtheria, Pertussis, Tetanus Vaccination: Yes Review of Systems - Review of Systems Constitutional: No symptoms reported EENT: No symptoms reported Cardiovascular: No symptoms reported Respiratory: No symptoms reported Gastrointestinal: See HPI Genitourinary: No symptoms reported Male Genitourinary: No symptoms reported Musculoskeletal: No symptoms reported Skin: No symptoms reported Hematologic/Lymphatic: No symptoms reported Neurological/Psychological: No symptoms reported Physical Exam - Vital signs Vitals: Temp Pulse Resp BP Pulse Ox 98.1 F 90 16 144/81 H 98 05/06/19 18:15 05/06/19 18:15 05/06/19 18:15 05/06/19 18:15 05/06/19 18:15 - Notes Notes: GENERAL: Patient writhing around in the bed, appears to be in a lot of distress HEAD: Normocephalic, atraumatic. EYES: Pupils equal, round, and reactive to light. Extraocular movements intact. ENT: Oral mucosa moist, tongue midline. Oropharynx unremarkable. Airway patent. NECK: Full range of motion. Supple. Trachea midline. LUNGS: Clear to auscultation bilaterally, no wheezes, rales, or rhonchi. No respiratory distress. HEART: Regular rate and rhythm. No murmur ABDOMEN: Distended and diffusely tender with guarding over the whole abdomen. Bowel sounds are still present but quiet GENITOURINARY: No tenderness or concerning findings EXTREMITIES: Moves all 4 extremities spontaneously. No edema, normal radial and dorsalis pedis pulses bilaterally. No cyanosis. BACK: no cervical, thoracic, lumbar midline tenderness. No saddle anesthesia, normal distal neurovascular exam. NEUROLOGICAL: Alert and oriented x3. Normal speech. Cranial nerves II through XII grossly intact. PSYCH: Agitated SKIN: Warm, dry, normal turgor. No rashes or lesions noted. Course - Re-evaluation Re-evalutation: On my exam patient is writhing around in pain. He does absolutely appear to be in intense pain. Patient was medicated, he allowed me to examine his abdomen, he is diffusely tender with what appears to be distention. CBC, chemistry nons pecific. Patient states he would not be able to tolerate oral contrast, based on his evaluation I agree. On reevaluation patient is still having trouble holding still enough for the CAT scan, he was given fentanyl, after this we were able to perform a CAT scan. Radiologist called me and expressed concerns about distal obstruction including possible stricture versus cancer. She states this is beyond what would be felt with a rectal exam, patient needs a surgical consult with potentially flex sig versus surgery. Called and spoke with Dr. Sumner, he states he will come evaluate the patient. Patient was accepted to observation status under surgical service. - Vital Signs Vital signs: Temp Pulse Resp BP Pulse Ox 97.7 F 73 18 116/82 93 05/07/19 02:41 05/07/19 02:41 05/07/19 02:41 05/07/19 02:41 05/07/19 02:41 - Laboratory Result Diagrams: 05/06/19 19:48 05/06/19 19:48 Laboratory results interpreted by me: 05/06/19 05/06/19 05/06/19 19:48 19:48 19:48 WBC 10.6 H Glucose 120 H ALT 52 H Total Protein 8.6 H Albumin 5.1 H Urine Protein 30 H Urine Ascorbic Acid 40 H Discharge - Discharge Clinical Impression: Abdominal distension Abdominal pain Qualifiers: Abdominal location: generalized Qualified Code(s): R10.84 - Generalized abdominal pain Vomiting Qualifiers: Vomiting type: unspecified Vomiting Intractability: non-intractable Nausea presence: with nausea Qualified Code(s): R11.2 - Nausea with vomiting, unspecified Condition: Stable Disposition: ADMITTED OBSERVATION Admitting Provider: Surgicalist Unit Admitted: Surgical Floor
[2019-05-06] MEDS ORDERED: FENTANYL CITRATE INJ/PF 100 MCG/2 ML AMPUL IV ONE ×2 (21:12→22:59)
--- NOTE | 2019-05-06 22:29 | RADIOLOGY REPORT (SQ) ---
EXAM DESCRIPTION: CT scan of the abdomen and pelvis with IV contrast CLINICAL HISTORY: 49 years Male; severe abdominal pain TECHNIQUE: CT of the abdomen and pelvis with intravenous contrast. Delayed imaging was also performed. All CT scans at this facility use dose modulation, iterative reconstruction, and/or weight based dosing when appropriate to reduce radiation dose to as low as reasonably achievable. This exam was performed according to our department optimization program which includes automated exposure control, adjustment of the mA and/or kv according to patient size and/or use of iterative reconstruction technique. COMPARISON: CT scan of the abdomen and pelvis January 10, 2019 FINDINGS: Lower chest: Minimal volume loss is noted in the lung bases. Heart size is normal. Abdomen: Liver and biliary tree: Diffuse fatty infiltration of the liver is noted. The gallbladder surgically absent. No biliary dilatation. Portal vein and hepatic veins are patent. Pancreas: Normal Spleen:Within normal limits Kidneys: Kidneys are normal in size, shape and position. No stones. No mass or hydronephrosis. Symmetric renal enhancement bilaterally. Adrenal glands:Within normal limits Vascular structures:Within normal limits Retroperitoneum: Diffuse, small retroperitoneal lymph nodes are identified. These do not meet size criteria for pathologic process. There is slightly more pronounced on today's exam. Abdominal wall: Small umbilical hernia containing omentum. The appearance is stable. GI: Bowel gas pattern is abnormal. The proximal small bowel is completely decompressed. The mid and distal small bowel is dilated. The colon is dilated. There are multiple air-fluid levels and the distal small bowel in the colon contain fluid. There may be focal narrowing of the rectum with a short segment of possible bowel wall thickening.. Appendix: The appendix is not seen General: No free air. No free fluid Pelvis: Lymph nodes: No mass or lymphadenopathy Bladder: Unremarkable. Pelvis: No pelvic mass or adenopathy. Bones: No acute bone findings. IMPRESSION: Abnormal bowel gas pattern with a transition zone noted in the distal most aspect of the rectum. There may be subtle bowel wall thickening in the rectum. Proximal to this the bowel is dilated with air-fluid levels. This is worrisome for stricture or neoplasm in the rectal vault. Fatty infiltration of the liver. THIS REPORT CONTAINS FINDINGS THAT MAY BE CRITICAL TO PATIENT CARE: The findings were verbally discussed via telephone conference with ANN BENITEZ at 9:26 PM [employer] on 05/06/2019 .
[2019-05-06] MEDS ORDERED: ONDANSETRON HCL INJ/PF 4 MG/2 ML SDV IV PRN (23:13)
--- NOTE | 2019-05-06 23:22 | PDOC H&P ---
History of Present Illness Patient complains of: Abdominal pain History of Present Illness: ALLAN KILPATRICK is a 49 year old male Presents emergency department via ground rescue complaining of acute onset abdominal pain last night while he was in [place] after eating a meal of tofu and kale. He had episode of nausea, vomiting and crampy pain. He flew from [place] to [place] today than [place] to [place] continue to have pain although he was able to drink 2 smoothies. He came to the emergency department complaining of nausea abdominal pain bloating, loose stools. Acute abdominal series showed dilated small and large bowel and a CT scan without oral contrast showed similar findings with a suggestion of a distal rectal stricture. Surgery was consulted. Patient received antiemetics and pain medication without relief because of persisting abdominal pain, patient was advised admission. Of note th e patient had a colonoscopy several years ago with unremarkable findings. He denies history of constipation, weight loss, decreased energy, or any other constitutional symptoms. He was seen in the emergency department several months ago with similar complaints and was diagnosed with gastroenteritis. Past Medical History Past Medical History: Obesity, asthma, gastroenteritis Pulmonary Medical History: Reports: Asthma - childhood GI Medical History: Reports: Gastroesophageal Reflux Disease Past Surgical History Past Surgical History: Reports: Appendectomy, Cholecystectomy, Orthopedic Surgery Social History Information Source: Patient Smoking Status: Former Smoker Electronic Cigarette use?: No Hx Recreational Drug Use: No Drugs: None Hx Prescription Drug Abuse: No Family History Family History: None, Reviewed & Not Pertinent Parental Family History Reviewed: No Children Family History Reviewed: No Sibling(s) Family History Reviewed.: No Medication/Allergy Home Medications: Famotidine [Pepcid 20 mg Tablet] 20 mg PO BID #20 tablet 01/10/19 Allergies/Adverse Reactions: No Known Allergies Allergy (Verified 05/06/19 18:29) Review of Systems Constitutional: PRESENT: as per HPI Eyes: ABSENT: visual disturbances Ears: ABSENT: hearing changes Cardiovascular: ABSENT: chest pain, dyspnea on exertion, edema, orthropnea, palpitations Gastrointestinal: PRESENT: as per HPI Genitourinary: ABSENT: dysuria, hematuria Musculoskeletal: ABSENT: joint swelling Integumentary: ABSENT: rash, wounds Neurological: ABSENT: abnormal gait, abnormal speech, confusion, dizziness, focal weakness, syncope Hematologic/Lymphatic: ABSENT: easy bleeding, easy bruising Physical Exam Vital Signs: Temp Pulse Resp BP Pulse Ox 98.1 F 90 16 147/78 H 97 05/06/19 18:15 05/06/19 18:15 05/06/19 22:01 05/06/19 22:01 05/06/19 22:01 Intake & Output 05/05/19 05/06/19 05/07/19 06:59 06:59 06:59 Intake Total 1000 Balance 1000 Weight 111.584 kg General appearance: PRESENT: other - Moderate distress Head exam: PRESENT: normocephalic Eye exam: PRESENT: EOMI Ear exam: PRESENT: normal external ear exam Mouth exam: PRESENT: dry mucosa Neck exam: PRESENT: full ROM Respiratory exam: PRESENT: clear to auscultation eliu Cardiovascular exam: PRESENT: RRR Pulses: PRESENT: normal carotid pulses, normal radial pulses, normal femoral p ulses, normal dorsalis pedis pul GI/Abdominal exam: PRESENT: other - Distended abdomen with mild tympany small umbilical hernia and no rigidity no guarding; diffuse abdominal tenderness, nonlocalized Rectal exam: PRESENT: other - Human index finger patient rolled in left lateral cubitus position. Excellent sphincter tone. Posterior surface of prostate gland smooth, slightly enlarged. No palpable pathology within the reach of the adult Gentrourinary exam: PRESENT: other - Normal Extremities exam: PRESENT: full ROM Musculoskeletal exam: PRESENT: full ROM Neurological exam: PRESENT: oriented to place, oriented to time, oriented to situation Psychiatric exam: PRESENT: anxious Skin exam: PRESENT: dry Results Laboratory Results: 05/06/19 19:48 05/06/19 19:48 05/06/19 05/06/19 05/06/19 19:48 19:48 19:48 WBC 10.6 H RBC 5.20 Hgb 16.1 Hct 46.2 MCV 89 MCH 31.0 MCHC 34.8 RDW 13.3 Plt Count 276 Seg Neutrophils % 73.5 Sodium 139.4 Potassium 3.8 Chloride 100 Carbon Dioxide 28 Anion Gap 11 BUN 19 Creatinine 0.97 Est GFR ( Amer) > 60 Glucose 120 H Calcium 9.1 Total Bilirubin 1.1 AST 36 Alkaline Phosphatase 48 Total Protein 8.6 H Albumin 5.1 H Lipase 35.7 Urine Color YELLOW Urine Appearance SLIGHTLY-CLOUDY Urine pH 5.0 Ur Specific [place] 1.031 Urine Protein 30 H Urine Glucose (UA) NEGATIVE Urine Ketones NEGATIVE Urine Blood NEGATIVE Urine Nitrite NEGATIVE Ur Leukocyte Esterase NEGATIVE Urine WBC (Auto) 3 Impressions: Acute Abdomen Series 05/06/19 18:48 IMPRESSION: Mildly distended loops of both large and small bowel containing air-fluid levels with gas visualized distally within the rectum. Differential considerations include enterocolitis or partial bowel obstruction. Abdomen/Pelvis CT 05/06/19 20:46 IMPRESSION: Abnormal bowel gas pattern with a transition zone noted in the distal most aspect of the rectum. There may be subtle bowel wall thickening in the rectum. Proximal to this the bowel is dilated with air-fluid levels. This is worrisome for stricture or neoplasm in the rectal vault. Fatty infiltration of the liver. THIS REPORT CONTAINS FINDINGS THAT MAY BE CRITICAL TO PATIENT CARE: The findings were verbally discussed via telephone conference with ANN BENITEZ at 9:26 PM DEMAND INSPECTOR on 05/06/2019 . Assessment & Plan - Diagnosis (1) Acute generalized abdominal pain Is this a current diagnosis for this admission?: Yes Plan: Impression: Acute onset abdominal pain, bloating, loose stools, nausea and vomiting x2, with radiologic imaging suggestive of ileus versus bowel obstruction versus gastroenteritis possibly due to distal rectal pathology; radiologist interpreted noncontrast CT scan as having a rectal stricture; unable to palpate any rectal pathology on exam tonight. History of unremarkable colonoscopy in the past. Recommendations: 1. Somewhat confusing picture patient very anxious, with complaints out of proportion to physical, serologic and radiographic findings. Nonetheless we will admit him for observation, n.p.o. IV fluids and reassessment in the morning. 2. Patient's symptoms unresolved, endoscopic evaluation per rectum will be offered. This was explained to the patient. (2) Obesity (BMI 30-39.9) Is this a current diagnosis for this admission?: Yes (3) Borderline diabetes Is this a current diagnosis for this admission?: Yes - Time Time Spent: 50 to 70 Minutes Critical Time spent with patient: 15-24 minutes Medications reviewed and adjusted accordingly: Yes Anticipated discharge: Home - Inpatient Certification Based on my medical assessment, after consideration of the patient's comorbidities, presenting symptoms, or acuity I expect that the services needed warrant INPATIENT care.: Yes I certify that my determination is in accordance with my understanding of Medicare's requirements for reasonable and necessary INPATIENT services [42 CFR 412.3e].: Yes Medical Necessity: Need For IV Fluids, Need for Pain Control
[2019-05-06] MEDS: RINGERS SOLUTION,LACTATED 1,000 ML IV PRN (23:49)
[2019-05-07] MEDS: ACETAMINOPHEN INJ/PF 1000 MG/100 ML SDV IV SCH ×3 (00:32→11:56)
[2019-05-07] MEDS: RINGERS SOLUTION,LACTATED 1,000 ML IV PRN ×3 (04:46→21:35)
--- NOTE | 2019-05-07 08:38 | PDOC PROGRESS REPORT ---
Subjective Progress Note for:: 05/07/19 Subjective:: feels a bit less bloated Reason For Visit: ACUTE ABDOMINAL PAIN Physical Exam Vital Signs: Temp Pulse Resp BP Pulse Ox 97.7 F 73 18 116/82 93 05/07/19 02:41 05/07/19 02:41 05/07/19 02:41 05/07/19 02:41 05/07/19 02:41 Intake & Output 05/06/19 05/07/19 05/08/19 06:59 06:59 06:59 Intake Total 1989 Balance 1989 Weight 111.8 kg General appearance: PRESENT: no acute distress Head exam: PRESENT: normocephalic Eye exam: PRESENT: EOMI Ear exam: PRESENT: normal external ear exam Mouth exam: PRESENT: moist Neck exam: PRESENT: full ROM Respiratory exam: PRESENT: clear to auscultation eliu Cardiovascular exam: PRESENT: RRR Pulses: PRESENT: normal femoral pulses, normal dorsalis pedis pul Vascular exam: PRESENT: normal capillary refill GI/Abdominal exam: PRESENT: diminished bowel sounds, distended, tenderness - sl tender, no peritioneal signs Rectal exam: PRESENT: deferred Extremities exam: PRESENT: full ROM Musculoskeletal exam: PRESENT: full ROM Neurological exam: PRESENT: alert, awake, oriented to person, oriented to place, oriented to time, oriented to situation Psychiatric exam: PRESENT: appropriate affect Skin exam: PRESENT: dry Results Laboratory Results: 05/06/19 19:48 05/06/19 19:48 05/06/19 05/06/19 05/06/19 19:48 19:48 19:48 WBC 10.6 H RBC 5.20 Hgb 16.1 Hct 46.2 MCV 89 MCH 31.0 MCHC 34.8 RDW 13.3 Plt Count 276 Seg Neutrophils % 73.5 Sodium 139.4 Potassium 3.8 Chloride 100 Carbon Dioxide 28 Anion Gap 11 BUN 19 Creatinine 0.97 Est GFR ( Amer) > 60 Glucose 120 H Calcium 9.1 Total Bilirubin 1.1 AST 36 Alkaline Phosphatase 48 Total Protein 8.6 H Albumin 5.1 H Lipase 35.7 Urine Color YELLOW Urine Appearance SLIGHTLY-CLOUDY Urine pH 5.0 Ur Specific [place] 1.031 Urine Protein 30 H Urine Glucose (UA) NEGATIVE Urine Ketones NEGATIVE Urine Blood NEGATIVE Urine Nitrite NEGATIVE Ur Leukocyte Esterase NEGATIVE Urine WBC (Auto) 3 Impressions: Acute Abdomen Series 05/06/19 18:48 IMPRESSION: Mildly distended loops of both large and small bowel containing air-fluid levels with gas visualized distally within the rectum. Differential considerations include enterocolitis or partial bowel obstruction. Abdomen/Pelvis CT 05/06/19 20:46 IMPRESSION: Abnormal bowel gas pattern with a transition zone noted in the distal most aspect of the rectum. There may be subtle bowel wall thickening in the rectum. Proximal to this the bowel is dilated with air-fluid levels. This is worrisome for stricture or neoplasm in the rectal vault. Fatty infiltration of the liver. THIS REPORT CONTAINS FINDINGS THAT MAY BE CRITICAL TO PATIENT CARE: The findings were verbally discussed via telephone conference with ANN WALSH PAC at 9:26 PM MAINFRAME SYSTEMS ADMINISTRATOR on 05/06/2019 . Assessment & Plan - Plan Summary Plan Summary: impression abdominal distension, ileus vs rectal/sigmoid stricture will order lower gi study today to r/o obstruction cont only ice chips till after study.
--- NOTE | 2019-05-07 14:17 | RADIOLOGY REPORT (SQ) ---
EXAM DESCRIPTION: BARIUM ENEMA COMPLETED DATE/TIME: 05/07/2019 1:29 pm REASON FOR STUDY: Abdominal pain. Distended colon and small bowel loops. Anal pain COMPARISON: CT abdomen and pelvis 05/06/2019. FLUOROSCOPY TIME: 3.4 minutes of fluoroscopy was used. 40 images saved to PACS. TECHNIQUE: Following retrograde filling of the colon with Gastrografin, fluoroscopic spot and overhe ad imaging of the colon was obtained and saved to PACS. LIMITATIONS: None. FINDINGS: RADIO INSTALLER KUB: Air-filled loops of colon and small bowel identified. CECUM: Normal cecum. ASCENDING COLON: No masses, strictures, or perforations. TRANSVERSE COLON: No masses, strictures, or perforations. DESCENDING COLON: No masses, strictures, or perforations. SIGMOID COLON: No masses, strictures, or perforations. RECTUM: No masses, strictures, or perforations. Patient experienced a lot of pain while inserting th e standard rectal tube for the enema. Was able to insert a 22 [place] Bhagat catheter with less pain, although the anal sphincter was very tight. POST EVAC: Evacuation Images were are obtained following removal of the rectal tube which showed no a nal masses or strictures. OTHER: No other significant finding. IMPRESSION: NO EVIDENCE OF RECTAL OR SIGMOID STRICTURE OR MASS. PATIENT EXPERIENCED A LOT OF PAIN W HILE TRYING TO CANNULATE WITH THE STANDARD RECTAL TUBE REQUIRING INSERTION OF THE 22 [place] BHAGAT CAT HETER. EVACUATION IMAGES SHOW ANAL CANAL EXTREMELY TIGHT ALTHOUGH NO MASSES OR STRICTURES ARE IDENTI FIED. . COMMENT: Quality ID [id number]: Final reports for procedures using fluoroscopy that document radiation exp osure indices, or exposure time and number of fluorographic images (if radiation exposure indices are not available) TECHNICAL DOCUMENTATION: JOB ID: [id number] 2010 [employer]- All Rights Reserved Reading location - IP/workstation name: [email or web address] [id number]
[2019-05-07] MEDS ORDERED: DEXTROSE 40% GEL 15 GM TUBE PO PRN ×2 (16:38)
[2019-05-07] MEDS ORDERED: GLUCAGON,HUMAN RECOMB 1 MG INJ SUBCUT PRN (16:38)
[2019-05-07] MEDS ORDERED: DEXTROSE 50%-WATER 25 GM/50 ML DISP.SYRIN IV PRN ×2 (16:38)
[2019-05-07] MEDS: ACETAMINOPHEN 1,000 MG/100 ML RTUPB IV SCH ×2 (17:10→23:23)
[2019-05-07] MEDS: KETOROLAC TROMETHAMINE INJ/PF 30 MG/1 ML SDV IV PRN (21:39)
[2019-05-08] MEDS: RINGERS SOLUTION,LACTATED 1,000 ML IV PRN ×3 (02:58→20:20)
[2019-05-08] MEDS: KETOROLAC TROMETHAMINE INJ/PF 30 MG/1 ML SDV IV PRN (03:49)
[2019-05-08] MEDS ORDERED: NA PHOS,M-B/NA PHOS,DI-BA (ADULT) 133 ML ENEMA PR ONE (04:00)
[2019-05-08] MEDS: ACETAMINOPHEN 1,000 MG/100 ML RTUPB IV SCH ×3 (06:15→17:23)
--- NOTE | 2019-05-08 13:34 | PDOC PROGRESS REPORT ---
Subjective Progress Note for:: 05/08/19 Subjective:: Having bowel movement and flatus with decrease in bloating sensation feeling more comfortable. More passage of flatus later this morning Reason For Visit: ACUTE ABDOMINAL PAIN Physical Exam Vital Signs: Temp Pulse Resp BP Pulse Ox 97.7 F 67 15 103/67 95 05/08/19 11:46 05/08/19 11:46 05/08/19 11:46 05/08/19 11:46 05/08/19 11:46 Intake & Output 05/07/19 05/08/19 05/09/19 06:59 06:59 06:59 Intake Total 1989 6156 090 Balance 1989 395 493 Weight 111.8 kg 111.8 kg Exam: Abdomen is soft and nontender minimal distention Results Laboratory Results: 05/06/19 19:48 05/06/19 19:48 Impressions: Acute Abdomen Series 05/06/19 18:48 IMPRESSION: Mildly distended loops of both large and small bowel containing air-fluid levels with gas visualized distally within the rectum. Differential considerations include enterocolitis or partial bowel obstruction. Abdomen/Pelvis CT 05/06/19 20:46 IMPRESSION: Abnormal bowel gas pattern with a transition zone noted in the distal most aspect of the rectum. There may be subtle bowel wall thickening in the rectum. Proximal to this the bowel is dilated with air-fluid levels. This is worrisome for stricture or neoplasm in the rectal vault. Fatty infiltration of the liver. THIS REPORT CONTAINS FINDINGS THAT MAY BE CRITICAL TO PATIENT CARE: The findings were verbally discussed via telephone conference with ANN WALSH PAC at 9:26 PM CASINO RUNNER on 05/06/2019 . Barium Enema 05/07/19 07:00 IMPRESSION: NO EVIDENCE OF RECTAL OR SIGMOID STRICTURE OR MASS. PATIENT EXPERIENCED A LOT OF PAIN WHILE TRYING TO CANNULATE WITH THE STANDARD RECTAL TUBE REQUIRING INSERTION OF THE 22 [place] BHAGAT CATHETER. EVACUATION IMAGES SHOW ANAL CANAL EXTREMELY TIGHT ALTHOUGH NO MASSES OR STRICTURES ARE IDENTIFIED. . Assessment & Plan - Diagnosis (1) Ileus Is this a current diagnosis for this admission?: Yes (2) Abdominal distension Is this a current diagnosis for this admission?: Yes (3) Abdominal pain Qualifiers: Abdominal location: generalized Qualified Code(s): R10.84 - Generalized abdominal pain Is this a current diagnosis for this admission?: Yes (4) Obesity (BMI 30-39.9) Is this a current diagnosis for this admission?: Yes (5) Vomiting Qualifiers: Vomiting type: unspecified Vomiting Intractability: non-intractable Nausea presence: with nausea Qualified Code(s): R11.2 - Nausea with vomiting, unspecified Is this a current diagnosis for this admission?: Yes - Time Critical Time spent with patient: 15-24 minutes - Inpatient Certification Medical Necessity: Need For IV Fluids, Risk of Complication if Not Cared For in Hospital - Plan Summary Plan Summary: 49-year-old male admitted for possible ileus with abdominal distention after eating a supposedly bad batch of kale just prior to admission. Patient responded to enemas. Today had bowel movement and flatus which appears to have resolution of the ileus. His abdomen today remains soft and nontender. He will be started on clear liquids and will advance as tolerated.
[2019-05-08] MEDS ORDERED: BISACODYL 10 MG SUPP.RECT PR ONE (21:45)
[2019-05-09] MEDS: KETOROLAC TROMETHAMINE INJ/PF 30 MG/1 ML SDV IV PRN (01:02)
[2019-05-09] MEDS: ACETAMINOPHEN 1,000 MG/100 ML RTUPB IV SCH ×5 (01:03→23:28)
[2019-05-09] MEDS: RINGERS SOLUTION,LACTATED 1,000 ML IV PRN ×3 (01:24→11:47)
[2019-05-09 07:10] LABS: ABSOLUTE EOSINOPHILS # (AUTO) 0.3 10^3/uL (0.0-0.6); ABSOLUTE LYMPHOCYTES (AUTO) 2.2 10^3/uL (0.5-4.7); ABSOLUTE MONOCYTES (AUTO) 0.6 10^3/uL (0.1-1.4); ABSOLUTE NEUT (AUTO) 3.2 10^3/uL (1.7-8.2); BASOPHILS % (AUTO) 0.6 % (0-2); EOSINOPHILS % (AUTO) 5.2 % (0-6); HEMATOCRIT 40.9 % (37.9-51.0); HEMOGLOBIN 14.5 g/dL (13.5-17.0); LYMPHOCYTES % (AUTO) 34.6 % (13-45); MEAN CORPUSCULAR HEMOGLOBIN 30.9 pg (27.0-33.4); MEAN CORPUSCULAR HGB CONC 35.4 g/dL (32.0-36.0); MEAN CORPUSCULAR VOLUME 87 fl (80-97); MONOCYTES % (AUTO) 9.5 % (3-13); PLATELET COUNT 262 10^3/uL (150-450); RED BLOOD COUNT 4.69 10^6/uL (4.35-5.55); RED CELL DISTRIBUTION WIDTH 13.4 % (11.5-14.0); SEGMENTED NEUTROPHILS % (AUTO) 50.1 % (42-78); TOTAL CELLS COUNTED % (AUTO) 100 %; WHITE BLOOD COUNT 6.3 10^3/uL (4.0-10.5)
[2019-05-09 07:18] LABS: ANION GAP 6 (5-19); BLOOD UREA NITROGEN 8 mg/dL (7-20); CALCIUM 8.7 mg/dL (8.4-10.2); CARBON DIOXIDE 33 mmol/L (22-30); CHLORIDE 102 mmol/L (98-107); GLUCOSE 78 mg/dL (75-110); POTASSIUM 3.8 mmol/L (3.6-5.0)
--- NOTE | 2019-05-09 11:05 | RADIOLOGY REPORT (SQ) ---
EXAM DESCRIPTION: KUB/ABDOMEN (SINGLE VIEW) COMPLETED DATE/TIME: 05/09/2019 10:50 am REASON FOR STUDY: abdominal pain COMPARISON: 05/06/2019. NUMBER OF VIEWS: One view. TECHNIQUE: Supine radiographic image of the abdomen acquired. LIMITATIONS: None. FINDINGS: BOWEL GAS PATTERN: No visible gas in the small bowel. Normal caliber colon with residual contrast. CALCIFICATIONS: No suspicious calcifications. SOFT TISSUES: No gross mass or suggestion of organomegaly. HARDWARE: Surgical clips. BONES: No acute fracture. No worrisome bone lesions. OTHER: No other significant finding. IMPRESSION: NO RADIOGRAPHIC EVIDENCE FOR ACUTE ABDOMINAL DISEASE. TECHNICAL DOCUMENTATION: JOB ID: [id number] 2010 [employer]- All Rights Reserved Reading location - IP/workstation name: [email or web address]
--- NOTE | 2019-05-09 14:59 | PDOC PROGRESS REPORT ---
Subjective Progress Note for:: 05/09/19 Subjective:: 49-year-old male presenting with abdominal distention and pain. He has undergone CT scanning, and a barium enema. These failed to show any significant anatomic stricture of the colon or rectum. The patient reports a significant improvement in his abdominal pain today. He is passing flatus and having bowel movements. He is hungry. He denies chest pain, shortness of breath, headache, fevers, chills, nausea, vomiting, dizziness, orthostasis, fatigue, or malaise. Reason For Visit: ACUTE ABDOMINAL PAIN Physical Exam Vital Signs: Temp Pulse Resp BP Pulse Ox 97.8 F 65 17 108/75 93 05/09/19 11:10 05/09/19 11:10 05/09/19 11:10 05/09/19 11:10 05/09/19 11:10 Intake & Output 05/08/19 05/09/19 05/10/19 06:59 06:59 06:59 Intake Total 3957 4791 970 Balance 3957 4791 970 Weight 111.8 kg 109.9 kg General appearance: PRESENT: no acute distress, cooperative Head exam: PRESENT: atraumatic, normocephalic Eye exam: PRESENT: EOMI, PERRLA. ABSENT: scleral icterus Mouth exam: PRESENT: moist, neck supple Neck exam: ABSENT: meningismus, tenderness, thyromegaly, tracheal deviation Respiratory exam: PRESENT: clear to auscultation eliu, unlabored. ABSENT: chest wall tenderness, tachypnea, wheezes Cardiovascular exam: ABSENT: tachycardia Vascular exam: PRESENT: normal capillary refill. ABSENT: pallor GI/Abdominal exam: PRESENT: soft. ABSENT: distended, firm, guarding, tenderness Rectal exam: PRESENT: deferred Extremities exam: ABSENT: clubbing Musculoskeletal exam: ABSENT: deformity Neurological exam: PRESENT: alert, awake, oriented to person, oriented to place, oriented to time, oriented to situation, CN II-XII grossly intact. ABSENT: motor sensory deficit Psychiatric exam: ABSENT: agitated, anxious, depressed Focused psych exam: ABSENT: delusional Skin exam: ABSENT: cyanosis, erythema, jaundice Results Laboratory Results: 05/09/19 05:06 05/09/19 05:06 05/09/19 05/09/19 05:06 05:06 WBC 6.3 RBC 4.69 Hgb 14.5 Hct 40.9 MCV 87 MCH 30.9 MCHC 35.4 RDW 13.4 Plt Count 262 Seg Neutrophils % 50.1 Sodium 141.3 Potassium 3.8 Chloride 102 Carbon Dioxide 33 H Anion Gap 6 BUN 8 Creatinine 0.93 Est GFR ( Amer) > 60 Glucose 78 Calcium 8.7 Impressions: Acute Abdomen Series 05/06/19 18:48 IMPRESSION: Mildly distended loops of both large and small bowel containing air-fluid levels with gas visualized distally within the rectum. Differential considerations include enterocolitis or partial bowel obstruction. Abdomen/Pelvis CT 05/06/19 20:46 IMPRESSION: Abnormal bowel gas pattern with a transition zone noted in the distal most aspect of the rectum. There may be subtle bowel wall thickening in the rectum. Proximal to this the bowel is dilated with air-fluid levels. This is worrisome for stricture or neoplasm in the rectal vault. Fatty infiltration of the liver. THIS REPORT CONTAINS FINDINGS THAT MAY BE CRITICAL TO PATIENT CARE: The findings were verbally discussed via telephone conference with ANN WALSH PAC at 9:26 PM SERVICE DESK DIRECTOR on 05/06/2019 . Barium Enema 05/07/19 07:00 IMPRESSION: NO EVIDENCE OF RECTAL OR SIGMOID STRICTURE OR MASS. PATIENT EXPERIENCED A LOT OF PAIN WHILE TRYING TO CANNULATE WITH THE STANDARD RECTAL TUBE REQUIRING INSERTION OF THE 22 ENGLISH BHAGAT CATHETER. EVACUATION IMAGES SHOW ANAL CANAL EXTREMELY TIGHT ALTHOUGH NO MASSES OR STRICTURES ARE IDENTIFIED. . KUB X-Ray 05/09/19 00:00 IMPRESSION: NO RADIOGRAPHIC EVIDENCE FOR ACUTE ABDOMINAL DISEASE. Assessment & Plan - Diagnosis (1) Abdominal distension Is this a current diagnosis for this admission?: Yes (2) Abdominal pain Qualifiers: Abdominal location: generalized Qualified Code(s): R10.84 - Generalized abdominal pain Is this a current diagnosis for this admission?: Yes - Plan Summary Plan Summary: This is a 49-year-old male presenting with abdominal distention and pain. At this time, it is unclear why he suffered from such severe abdominal cramps. The most likely cause of this is a viral gastroenteritis. At this time the patient's symptoms are much improved. He is passing flatus and having bowel movements. He is hungry and would like to eat. He has no nausea or vomiting. I will advance him to a regular diet today and monitor his progress. If the patient does well with a diet, he can be discharged home. We will continue to follow this patient very closely.
[2019-05-10 13:06] VITALS: BP 123/79
--- NOTE | 2019-05-10 15:12 | PDOC DISCHARGE SUMMARY ---
General - Admit/Disc Date/PCP Admission Date/Primary Care Provider: 05/09/19 23:39 Discharge Date: 05/10/19 - Discharge Diagnosis Final Diagnosis: Gastroenteritis - Additional Information Resuscitation Status: Full Code Discharge Activity: Activity As Tolerated Referrals: ALYSA GALDAMEZ MD [ACTIVE STAFF] - 05/15/19 1:00 pm (PAY WILL BE 109.00) Home Medications: Famotidine [Pepcid 20 mg Tablet] 20 mg PO DAILY 05/07/19 History of Present Illiness History of Present Illness: ALLAN KILPATRICK is a 49 year old male complaining of abdominal pain with nausea and vomiting 2 days prior to admission. The day prior developed some diarrhea and later on obstipation for which she she he took Gas-X. On the day of admission patient was on the plane from [place] to [place] and complained of increasing abdominal distention and brought directly from the airport to the hospital for severe abdominal pains. He had a CAT scan of the abdomen which showed ileus. He had a barium enema with showed no obvious abnormality other than some possible narrowing in the rectal side no definite stricture or carcinoma noted. Meantime patient gradually improved and pass gas after getting enemas. Patient able to pass flatus and have a bowel movement the day prior to discharge and on the day of discharge felt a lot better tolerating soft diet. Physical Exam Vital Signs: Temp Pulse Resp BP Pulse Ox 97.6 F 64 16 120/72 96 05/10/19 11:42 05/10/19 11:42 05/10/19 11:42 05/10/19 11:42 05/10/19 11:42 Intake & Output 05/09/19 05/10/19 05/11/19 06:59 06:59 06:59 Intake Total 4791 1969 Balance 4791 1969 Weight 109.9 kg 110.7 kg Results Laboratory Results: WBC 6.3 10^3/uL (4.0-10.5) 05/09/19 05:06 RBC 4.69 10^6/uL (4.35-5.55) 05/09/19 05:06 Hgb 14.5 g/dL (13.5-17.0) 05/09/19 05:06 Hct 40.9 % (37.9-51.0) 05/09/19 05:06 MCV 87 fl (80-97) 05/09/19 05:06 MCH 30.9 pg (27.0-33.4) 05/09/19 05:06 MCHC 35.4 g/dL (32.0-36.0) 05/09/19 05:06 RDW 13.4 % (11.5-14.0) 05/09/19 05:06 Plt Count 262 10^3/uL (150-450) 05/09/19 05:06 Lymph % (Auto) 34.6 % (13-45) 05/09/19 05:06 Glasscock % (Auto) 9.5 % (3-13) 05/09/19 05:06 Eos % (Auto) 5.2 % (0-6) 05/09/19 05:06 Baso % (Auto) 0.6 % (0-2) 05/09/19 05:06 Absolute Neuts (auto) 3.2 10^3/uL (1.7-8.2) 05/09/19 05:06 Absolute Lymphs (auto) 2.2 10^3/uL (0.5-4.7) 05/09/19 05:06 Absolute Monos (auto) 0.6 10^3/uL (0.1-1.4) 05/09/19 05:06 Absolute Eos (auto) 0.3 10^3/uL (0.0-0.6) 05/09/19 05:06 Absolute Basos (auto) 0.0 10^3/uL (0.0-0.2) 05/09/19 05:06 Seg Neutrophils % 50.1 % (42-78) 05/09/19 05:06 Sodium 141.3 mmol/L (137-145) 05/09/19 05:06 Potassium 3.8 mmol/L (3.6-5.0) 05/09/19 05:06 Chloride 102 mmol/L (98-107) 05/09/19 05:06 Carbon Dioxide 33 mmol/L (22-30) H 05/09/19 05:06 Anion Gap 6 (5-19) 05/09/19 05:06 BUN 8 mg/dL (7-20) 05/09/19 05:06 Creatinine 0.93 mg/dL (0.52-1.25) 05/09/19 05:06 Est GFR ( Amer) > 60 (>60) 05/09/19 05:06 Est GFR (MDRD) Non-Af > 60 (>60) 05/09/19 05:06 Glucose 78 mg/dL (75-110) 05/09/19 05:06 POC Glucose 94 mg/dL (70-110) 05/09/19 05:38 Calcium 8.7 mg/dL (8.4-10.2) 05/09/19 05:06 Total Bilirubin 1.1 mg/dL (0.2-1.3) 05/06/19 19:48 Direct Bilirubin 0.2 mg/dL (0.0-0.4) 05/06/19 19:48 Neonat Total Bilirubin Not Reportable 05/06/19 19:48 Neonat Direct Bilirubin Not Reportable 05/06/19 19:48 Neonat Indirect Bili Not Reportable 05/06/19 19:48 AST 36 U/L (17-59) 05/06/19 19:48 ALT 52 U/L (<50) H 05/06/19 19:48 Alkaline Phosphatase 48 U/L (38-126) 05/06/19 19:48 Total Protein 8.6 g/dL (6.3-8.2) H 05/06/19 19:48 Albumin 5.1 g/dL (3.5-5.0) H 05/06/19 19:48 Lipase 35.7 U/L (23-300) 05/06/19 19:48 Urine Color YELLOW 05/06/19 19:48 Urine Appearance SLIGHTLY-CLOUDY 05/06/19 19:48 Urine pH 5.0 (5.0-9.0) 05/06/19 19:48 Ur Specific Lillian 1.031 05/06/19 19:48 Urine Protein 30 mg/dL (NEGATIVE) H 05/06/19 19:48 Urine Glucose (UA) NEGATIVE mg/dL (NEGATIVE) 05/06/19 19:48 Urine Ketones NEGATIVE mg/dL (NEGATIVE) 05/06/19 19:48 Urine Blood NEGATIVE (NEGATIVE) 05/06/19 19:48 Urine Nitrite NEGATIVE (NEGATIVE) 05/06/19 19:48 Urine Bilirubin NEGATIVE (NEGATIVE) 05/06/19 19:48 Urine Urobilinogen NEGATIVE mg/dL (<2.0) 05/06/19 19:48 Ur Leukocyte Esterase NEGATIVE (NEGATIVE) 05/06/19 19:48 Urine WBC (Auto) 3 /HPF 05/06/19 19:48 Squamous Epi Cells Auto <1 /HPF 05/06/19 19:48 Urine Mucus (Auto) FEW /LPF 05/06/19 19:48 Urine Ascorbic Acid 40 (NEGATIVE) H 05/06/19 19:48 Impressions: Acute Abdomen Series 05/06/19 18:48 IMPRESSION: Mildly distended loops of both large and small bowel containing air-fluid levels with gas visualized distally within the rectum. Differential considerations include enterocolitis or partial bowel obstruction. Abdomen/Pelvis CT 05/06/19 20:46 IMPRESSION: Abnormal bowel gas pattern with a transition zone noted in the distal most aspect of the rectum. There may be subtle bowel wall thickening in the rectum. Proximal to this the bowel is dilated with air-fluid levels. This is worrisome for stricture or neoplasm in the rectal vault. Fatty infiltration of the liver. THIS REPORT CONTAINS FINDINGS THAT MAY BE CRITICAL TO PATIENT CARE: The findings were verbally discussed via telephone conference with ANN WALSH PAC at 9:26 PM VERIFIER OPERATOR on 05/06/2019 . Barium Enema 05/07/19 07:00 IMPRESSION: NO EVIDENCE OF RECTAL OR SIGMOID STRICTURE OR MASS. PATIENT EXPERIENCED A LOT OF PAIN WHILE TRYING TO CANNULATE WITH THE STANDARD RECTAL TUBE REQUIRING INSERTION OF THE 22 SLOVENIAN BHAGAT CATHETER. EVACUATION IMAGES SHOW ANAL CANAL EXTREMELY TIGHT ALTHOUGH NO MASSES OR STRICTURES ARE IDENTIFIED. . KUB X-Ray 05/09/19 00:00 IMPRESSION: NO RADIOGRAPHIC EVIDENCE FOR ACUTE ABDOMINAL DISEASE.
== END 2019-05-10 15:01 | disposition home or self-care (01) | DRG 392 ==
LOC: ER 17:54 → EH 05-07 00:19 → 3N 05-07 02:40 → 4W 05-09 14:03 → OBSVTOIN 05-09 23:39
PROVIDERS: ADMIT Surgery; ATTEND Surgery
DX: A08.4 Viral intestinal infection, unspecified (principal); K56.7 Ileus, unspecified; R11.2 Nausea with vomiting, unspecified; R19.7 Diarrhea, unspecified; R10.9 Unspecified abdominal pain; K21.9 Gastro-esophageal reflux disease without esophagitis
CPT/HCPCS: 36415; 74018; 74022; 74177; 74270; 80048; 80053; 81001; 82962; 83690; 85025; 96361; 96374; 96375; 96376; 99285; G0378; J0131; J1170; J1885; J2405; J3010; J7030; J7120

== ENCOUNTER 2020-03-25 13:30 | Emergency (ER) | payer SELFPAY ==
[2020-03-25 13:36] VITALS: BP 131/85
[2020-03-25] MEDS ORDERED: HYDROCODONE/ACETAMINOPHEN 10-325 MG TABLET PO ONE (13:56)
[2020-03-25] MEDS ORDERED: NORMAL SALINE 1000 ML 1,000 ML IV ONE (13:56)
[2020-03-25] MEDS ORDERED: ONDANSETRON HCL 8 MG TABLET PO ONE (13:56)
--- NOTE | 2020-03-25 13:59 | ER Document Report ---
ED Medical Screen (RME) - General Chief Complaint: Abdominal Pain Stated Complaint: ABDOMINAL PAIN Time Seen by Provider: 03/25/20 13:52 TRAVEL OUTSIDE OF THE [place] IN LAST 30 DAYS: No - HPI Notes: 03/25/20 13:57 50-year-old male presents to the emergency room today with complaints of severe left lower quadrant pain that has become progressively worse over the last 5 days. Reports today pain is 5 out of 5, sharp stabbing and constant. Reports pain has now started to progress to his left upper quadrant. Patient states he does have a surgical history of having a cholecystectomy as well as an append ectomy. Denies any fevers, nausea, vomiting. Reports his last bowel movement was today which was normal for him, no melena. Denies any chest pain or shortness of breath. Denies any trauma to his abdomen. Denies any medical history. Patient states he is not anything to eat or drink today because he is concerned he may have diverticulitis. I have greeted and performed a rapid initial assessment of this patient. A comprehensive ED assessment and evaluation of the patient, analysis of test results and completion of the medical decision making process will be conducted by additional ED providers. PHYSICAL EXAMINATION: GENERAL: Well-appearing, well-nourished and in no acute distress. CV: s1, s2 regular LUNGS: No respiratory distress abd: LLQ abd pain on palpation, LUQ abd pain on palpation. No CVA tenderness appreciated bilaterally. No abdominal distention Musculoskeletal: Normal range of motion NEUROLOGICAL: Normal speech, normal gait. SKIN: Warm, Dry, normal turgor, no rashes or lesions noted. The patient was evaluated during a global COVID-19 pandemic and that diagnosis was suspected/considered upon their initial presentation. Their evaluation, treatment and testing was consistent with current guidelines for patients who present with complaints or symptoms and may be related to COVID-19. - Related Data Allergies/Adverse Reactions: No Known Allergies Allergy (Verified 05/06/19 18:29) Past Medical History Pulmonary Medical History: Reports: Hx Asthma - childhood Renal/ Medical History: Denies: Hx Peritoneal Dialysis GI Medical History: Reports: Hx Gastroesophageal Reflux Disease Past Surgical History: Reports: Hx Appendectomy, Hx Cholecystectomy, Hx Orthopedic Surgery - Immunizations Hx Diphtheria, Pertussis, Tetanus Vaccination: Yes Physical Exam - Vital signs Vitals: Temp Pulse Resp BP Pulse Ox 98.0 F 75 14 131/85 H 98 03/25/20 13:35 03/25/20 13:35 03/25/20 13:35 03/25/20 13:35 03/25/20 13:35 Course - Vital Signs Vital signs: Temp Pulse Resp BP Pulse Ox 98.0 F 75 14 131/85 H 98 03/25/20 13:35 03/25/20 13:35 03/25/20 13:35 03/25/20 13:35 03/25/20 13:35
[2020-03-25 14:37] LABS: ABSOLUTE BASOPHILS # (AUTO) 0.1 10^3/uL (0.0-0.2); ABSOLUTE EOSINOPHILS # (AUTO) 0.5 10^3/uL (0.0-0.6); ABSOLUTE LYMPHOCYTES (AUTO) 2.5 10^3/uL (0.5-4.7); ABSOLUTE MONOCYTES (AUTO) 0.7 10^3/uL (0.1-1.4); ABSOLUTE NEUT (AUTO) 5.3 10^3/uL (1.7-8.2); HEMATOCRIT 44.7 % (37.9-51.0); HEMOGLOBIN 15.5 g/dL (13.5-17.0); LYMPHOCYTES % (AUTO) 27.5 % (13-45); MEAN CORPUSCULAR HGB CONC 34.6 g/dL (32.0-36.0); MEAN CORPUSCULAR VOLUME 87 fl (80-97); MONOCYTES % (AUTO) 8.3 % (3-13); PLATELET COUNT 284 10^3/uL (150-450); RED BLOOD COUNT 5.16 10^6/uL (4.35-5.55); RED CELL DISTRIBUTION WIDTH 13.5 % (11.5-14.0); SEGMENTED NEUTROPHILS % (AUTO) 58.2 % (42-78); TOTAL CELLS COUNTED % (AUTO) 100 %
[2020-03-25 14:38] LABS: APPEARANCE,URINE CLEAR; BILIRUBIN,URINE NEGATIVE (NEGATIVE); COLOR,URINE YELLOW; GLUCOSE, URINE NEGATIVE (NEGATIVE); KETONES,URINE NEGATIVE (NEGATIVE); LEUKOCYTE ESTERASE,URINE NEGATIVE (NEGATIVE); NITRITE,URINE NEGATIVE (NEGATIVE); PROTEIN,URINE NEGATIVE (NEGATIVE); URINE SPECIFIC GRAVITY 1.018; UROBILINOGEN,URINE NEGATIVE mg/dL (<2.0)
[2020-03-25 14:57] LABS: ALBUMIN 4.5 g/dL (3.5-5.0); ALKALINE PHOSPHATASE 54 U/L (38-126); ANION GAP 7 (5-19); ASPARTATE AMINO TRANSFERASE 41 U/L (17-59); BILIRUBIN,DIRECT 0.2 mg/dL (0.0-0.4); BILIRUBIN,TOTAL 0.6 mg/dL (0.2-1.3); BLOOD UREA NITROGEN 11 mg/dL (7-20); CALCIUM 9.6 mg/dL (8.4-10.2); CARBON DIOXIDE 30 mmol/L (22-30); CHLORIDE 102 mmol/L (98-107); GLUCOSE 99 mg/dL (75-110); POTASSIUM 4.3 mmol/L (3.6-5.0); TOTAL PROTEIN 7.8 g/dL (6.3-8.2)
--- NOTE | 2020-03-25 17:16 | RADIOLOGY REPORT (SQ) ---
EXAM DESCRIPTION: CT ABD/PELVIS WITH IV ORAL IMAGES COMPLETED DATE/TIME: 03/25/2020 1:49 pm REASON FOR STUDY: LUQ, LLQ abd pain x 5 days, pain worse today, 07/16 COMPARISON: 05/06/2019 TECHNIQUE: CT scan of the abdomen and pelvis performed using helical scanning technique with dynamic intravenous contrast injection. Oral contrast also given ast. Images reviewed with lung, soft tissu e, and bone windows. Reconstructed coronal and sagittal MPR images reviewed. Delayed images for evalu ation of the urinary system also acquired. All images stored on PACS. All CT scanners at this facility use dose modulation, iterative reconstruction, and/or weight based d osing when appropriate to reduce radiation dose to as low as reasonably achievable (ALARA). [facility]: Dose Right [facility]: CareDose [facility]: Dose Right [facility]: Teradose 4D [facility]: Scloby CONTRAST TYPE AND DOSE: contrast/concentration: Isovue 350.00 mmol/ml; Total Contrast Delivered: 100 .0 ml; Total Saline Delivered: 72.0 ml RENAL FUNCTION: Creatinine 1.0 RADIATION DOSE: CT Rad equipment meets quality standard of care and radiation dose reduction techniq ues were employed. CTDIvol: 16.6 - 19.8 mGy. DLP: 2092 mGy-cm.. LIMITATIONS: None. FINDINGS: LOWER CHEST: Lung bases are clear. LIVER: Enlarged with diffuse decreased density compatible with steatosis. No suspicious liver lesion identified. SPLEEN: Normal size. No focal lesions. PANCREAS: No masses. No significant calcifications. No adjacent inflammation or peripancreatic fluid collections. Pancreatic duct not dilated. GALLBLADDER: Surgically absent. ADRENAL GLANDS: No significant masses or asymmetry. RIGHT KIDNEY AND URETER: No solid masses. No significant calcifications. No hydronephrosis or hyd roureter. LEFT KIDNEY AND URETER: No solid masses. No significant calcifications. No hydronephrosis or hydr oureter. AORTA AND VESSELS: No aneurysm. No dissection. Renal arteries, SMA, celiac without stenosis. RETROPERITONEUM: No retroperitoneal adenopathy, hemorrhage or masses. BOWEL AND PERITONEAL CAVITY: There is a small circumscribed fat density structure anterior to the dis lindy descending colon measuring approximately 2.1 x 1.0 cm (series 3, image 65) with mild adjacent fat stranding compatible with epiploic appendagitis. No bowel wall thickening or dilatation. Portions of the colon are underdistended. APPENDIX: Not definitively visualized. PELVIS: No mass. No free fluid. Normal bladder. ABDOMINAL WALL: Small fat containing umbilical hernia. BONES: No significant or acute findings. OTHER: No other significant finding. IMPRESSION: 1. Findings compatible with epiploic appendagitis at the distal descending colon. 2. Hepatomegaly with diffuse steatosis. TECHNICAL DOCUMENTATION: JOB ID: [id number] Quality ID # [id number]: Final reports with documentation of one or more dose reduction techniques (e.g., Au tomated exposure control, adjustment of the mA and/or kV according to patient size, use of iterative reconstruction technique) 2010 [employer]- All Rights Reserved Reading location - IP/workstation name: [email or web address]
--- NOTE | 2020-03-25 17:36 | ER Document Report ---
ED GI/ - General Chief Complaint: Abdominal Pain Stated Complaint: ABDOMINAL PAIN Time Seen by Provider: 03/25/20 13:52 Primary Care Provider: [facility] [Provider Group] - Follow up as needed [facility] [Provider Group] - Follow up as needed CHESTER TSANG MD [ACTIVE STAFF] - Follow up as needed SONG FRIAS MD [ACTIVE STAFF] - Follow up as needed SVETLANA HENDRICKSON MD [ACTIVE STAFF] - Follow up as needed Notes: Patient is a 50-year-old male presents emergency department with a chief co mplaint of left lower quadrant abdominal pain that has come and go for the past 5 to 6 days. Patient states that his pain got progressively worse. Patient reports that over the past couple of years he actually has this pain, but will come and go. Patient has history of an appendectomy and a cholecystectomy in the past. States that he does feel nauseous. TRAVEL OUTSIDE OF THE [place] IN LAST 30 DAYS: No - Related Data Allergies/Adverse Reactions: No Known Allergies Allergy (Verified 05/06/19 18:29) Past Medical History - General Information source: Patient - Social History Smoking Status: Unknown if Ever Smoked Family History: Reviewed & Not Pertinent Pulmonary Medical History: Reports: Hx Asthma - childhood Renal/ Medical History: Denies: Hx Peritoneal Dialysis GI Medical History: Reports: Hx Gastroesophageal Reflux Disease Past Surgical History: Reports: Hx Appendectomy, Hx Cholecystectomy, Hx Orthopedic Surgery - Immunizations Hx Diphtheria, Pertussis, Tetanus Vaccination: Yes Review of Systems - Review of Systems Notes: REVIEW OF SYSTEMS: CONSTITUTIONAL : Denies recent illness. Denies recent unintentional weight loss. Denies fever, chills, or sweats. EENT: Denies eye, ear, throat, or mouth pain, discharge, or symptoms. Denies nasal or sinus congestion. CARDIOVASCULAR: Denies chest pain. RESPIRATORY: Denies shortness of breath, cough, congestion, difficulty breathing, or wheezing. GASTROINTESTINAL: See HPI. GENITOURINARY: Denies difficulty urinating, burning, blood in urine, urgency or frequency. MUSCULOSKELETAL: Denies neck and back pain. Denies joint pain or swelling. SKIN: Denies rash, itchiness, or lesions HEMATOLOGIC : Denies easy bruising or bleeding. LYMPHATIC: Denies swollen, painful, enlarged glands. NEUROLOGICAL: Denies no numbness or tingling denies weakness. Denies headache. Denies altered mental status. Denies alteration in speech. PSYCHIATRIC: Denies stress, anxiety, alteration in sleep patterns, or depression. All other systems reviewed and negative. Physical Exam - Vital signs Vitals: Temp Pulse Resp BP Pulse Ox 98.0 F 75 14 131/85 H 98 03/25/20 13:35 03/25/20 13:35 03/25/20 13:35 03/25/20 13:35 03/25/20 13:35 - Notes Notes: PHYSICAL EXAMINATION: GENERAL: Appears well, healthy, well-nourished, no acute distress. HEAD: Normocephalic, atraumatic. EYES: PERRL, conjunctiva normal, all extraocular movements intact, sclera nonicteric ENT: Moist mucous membranes. NECK: Supple, no noticeable swelling, redness, rash. Normal range of motion. LUNGS: Equal breath sounds bilaterally and clear to auscultation. No wheezes rales or rhonchi. CARDIOVASCULAR: S1-S2, regular rate, regular rhythm. Radial pulses 2+, normal. ABDOMEN: Normoactive bowel sounds. Soft, moderately tender left lower abdomen, no guarding, no rebound tenderness, and no masses palpated. EXTREMITIES: Normal strength and range of motion, no pitting or edema. No cyanosis. NEUROLOGICAL: Moves all extremities upon command. Strength 5/5 in all extremities. PSYCH: Normal mood, normal affect. SKIN: Warm, dry. No rash, lesions, ulcerations noted. Normal skin turgor. Course - Re-evaluation Re-evalutation: 03/25/20 Hematology is unremarkable. Chemistries are also unremarkable. Lipase is normal. ALT is only slightly elevated. Urinalysis is negative. CT of the abdomen and pelvis show epiploic appendagitis. Discussed this case with Dr. Mullen, attending. Will start the patient on ibuprofen. He does have a history of gastroesophageal reflux disease, but he does not take any medications, other than Pepcid every once in a while. We will place the patient on Pepcid and Carafate while he takes ibuprofen. Will refer him to GI if needed. He is in agreement with this plan. Follow-up precautions were given. Verbal discharge instructions were given to the patient. They verbalized understanding. They are stable for discharge. - Vital Signs Vital signs: Temp Pulse Resp BP Pulse Ox 98.0 F 75 14 131/85 H 98 03/25/20 13:35 03/25/20 13:35 03/25/20 13:35 03/25/20 13:35 03/25/20 13:35 - Laboratory Results Result Diagrams: 03/25/20 14:21 03/25/20 14:21 Laboratory Results Interpreted: 03/25/20 14:21 ALT 64 H Critical Laboratory Results Reviewed: No Critical Results - Radiology Results Critical Radiology Results Reviewed: No Critical Results Discharge - Discharge Clinical Impression: Epiploic appendagitis Abdominal pain Qualifiers: Abdominal location: left lower quadrant Qualified Code(s): R10.32 - Left lower quadrant pain Condition: Stable Disposition: HOME, SELF-CARE Additional Instructions: You were seen today in the emergency department for abdominal pain. Your CT shows that you have epiploic appendagitis. This is inflammation in your colon on the left side. Take ibuprofen 600 mg every 6 hours. Please take the Carafate 30 minutes to 1 hour prior to taking the ibuprofen. You can also take Pepcid 40 mg twice a day while on the ibuprofen. Follow-up with one of the GI doctors. Prescriptions: Sucralfate [Carafate 1 gm Tablet] 1 gm PO ACHS #20 tablet Ibuprofen [Ibu] 600 mg PO Q6HP PRN #30 tablet PRN Reason: Famotidine [Pepcid 20 mg Tablet] 40 mg PO BID #20 tablet Forms: Return to Work Referrals: CHESTER TSANG MD [ACTIVE STAFF] - Follow up as needed SONG FRIAS MD [ACTIVE STAFF] - Follow up as needed SVETLANA HENDRICKSON MD [ACTIVE STAFF] - Follow up as needed [facility] [Provider Group] - Follow up as needed [facility] [Provider Group] - Follow up as needed
== END 2020-03-25 18:49 | disposition home or self-care (01) ==
LOC: ER 13:30
DX: K63.89 Other specified diseases of intestine (principal); R10.32 Left lower quadrant pain; R11.0 Nausea; R74.01 Elevation of levels of liver transaminase levels; K76.0 Fatty (change of) liver, not elsewhere classified; K21.9 Gastro-esophageal reflux disease without esophagitis; Z90.49 Acquired absence of other specified parts of digestive tract
CPT/HCPCS: 99285; 96360; 36415; 83690; 85025; 80053; 81001; 74177; S0119; J7030